=== PATIENT | female | born 1945 | race Asian ===

== ENCOUNTER 2018-10-24 14:38 | Inpatient (IN) | payer MEDICARE, SELFPAY ==
[2018-10-24 14:40] VITALS: BP 134/47; PULSE 63; RESP 20; TEMP 36.7; O2SAT 99
--- NOTE | 2018-10-24 14:41 | DI.RAD.S_ITS ---
PROCEDURE: XR HIP W PEL IF DONE LT 2V INDICATIONS: fall with hip pain TECHNIQUE: AP pelvis with lateral view the left hip. COMPARISON: None. FINDINGS: The Bones: There is a mildly impacted intertrochanteric fracture of the proximal left femur. There is mild associated varus angulation. The fracture extends to the subtrochanteric region. Pelvic ring appears intact. The left hip demonstrates moderate to severe superior joint space narrowing with subchondral sclerosis and osteophytosis. No suspicious bony lesions. Soft tissues: The visualized bowel gas pattern is normal. No suspicious soft tissue calcifications. IMPRESSION: 1. Intertrochanteric fracture of the left femur as described. Dictated by: Otto Shannon M.D. on 10/24/2018 at 15:29 Approved by: Otto Shannon M.D. on 10/24/2018 at 16:12
--- NOTE | 2018-10-24 14:55 | ED.FALL ---
HPI - Fall General Chief Complaint: Fall Stated Complaint: GLF, L hip injury Time Seen by Provider: 10/24/18 14:41 Source: patient, family and EMS Mode of arrival: EMS Limitations: language barrier History of Present Illness HPI Narrative: 72-year-old female nonsmoker with cardiac history including stents, myocardial infarction speaks Cambodian as a 2nd language (screen is her [place] language). Patient [place] she slipped and fell onto her left hip she now has significant pain, limited range of motion and improvement with rest. She was brought by EMS for evaluation. She denies any head neck or back pain. She denies any prodromal symptoms. MD complaint: fall Onset (ago): minute(s) Fall from: standing Fall witnessed: yes, by family Place fall occurred: other Loss of consciousness: none Prolonged down time: no Symptoms prior to fall: none Context: tripped/slipped Severity: severe Quality: sharp and stabbing Related Data Home Medications Medication Instructions Recorded Confirmed Vitamin D3 1 cap PO DAILY 10/24/18 10/24/18 ascorbic acid (vitamin C) 100 mg PO DAILY 10/24/18 10/24/18 aspirin 81 mg PO DAILY 10/24/18 10/24/18 atorvastatin 80 mg PO DAILY 10/24/18 10/24/18 carvedilol 3.125 mg PO BID 10/24/18 10/24/18 citalopram 10 mg PO DAILY 10/24/18 10/24/18 losartan 25 mg PO DAILY 10/24/18 10/24/18 ticagrelor [Brilinta] 90 mg PO BID 10/24/18 10/24/18 Allergies Allergy/AdvReac Type Severity Reaction Status Date / Time No Known Drug Allergies Allergy Verified 10/24/18 14:53 Review of Systems Constitutional Denies chills, Denies fever(s), Denies lethargy and Denies weakness Eyes Denies change in vision, Denies eye discharge, Denies irritation and Denies loss of vision ENT Ears, Nose, Mouth, and Throat: Denies change in voice, Denies neck pain and Denies sore throat Cardiovascular Denies chest pain, Denies irregular heart rhythm, Denies lightheadedness, Denies palpitations, Denies dyspnea, Denies dyspnea on exertion and Denies orthopnea Respiratory Denies cough, Denies dyspnea, Denies dyspnea on exertion and Denies wheezing Gastrointestinal Gastrointestinal: Denies abdominal pain, Denies change in bowel habits, Denies diarrhea, Denies nausea and Denies vomiting Genitourinary Denies hematuria, Denies flank pain, Denies urinary incontinence and Denies urinary urgency Musculoskeletal Reports limited range of motion and Denies neck pain Integumentary/Breasts Denies pruritus, Denies erythema, Denies rash and Denies wounds Neurologic Denies confusion, Denies loss of vision and Denies weakness Psychiatric Denies anxiety, Denies confusion, Denies depression, Denies homicidal ideation and Denies suicidal ideation Endocrine Denies palpitations Hematologic/Lymphatic Denies easy bruising Allergic/Immunologic Denies wheezing Exam Narrative Exam Narrative: GENERAL: 72-year-old female appears younger than stated age, obviously uncomfortable and rubbing her left hip HEAD: Atraumatic. Normocephalic. No temporal or scalp tenderness. EYES: Pupils equal round and reactive. Extraocular motions intact. ENT: Nose without bleeding, purulent drainage or septal hematoma. NECK: Trachea midline. No JVD or lymphadenopathy. Supple, nontender, no meningeal signs. CARDIOVASCULAR: Regular rate and rhythm without murmurs, gallops, or rubs. RESPIRATORY: Clear to auscultation. Breath sounds equal bilaterally. No wheezes, rales, or rhonchi. GASTROINTESTINAL: Abdomen soft, non-tender, nondistended. No hepato-splenomegaly, or palpable masses. No guarding. EXTREMITIES: Decreased range of motion of left lower extremity secondary to pain, shortened, externally rotated. Close, isolated neurovascularly intact BACK: Nontender without deformity or crepitance. No flank tenderness. NEURO: AOx3. SKIN: No rash or erythema. Initial Vital Signs Initial Vital Signs: Vital Signs Temperature 98.0 F 10/24/18 14:40 Pulse Rate 63 10/24/18 14:40 Respiratory Rate 20 10/24/18 14:40 Blood Pressure 134/47 L 10/24/18 14:40 Pulse Oximetry 99 10/24/18 14:40 [facility] Social History Smoking Status: Never smoker Social History Smoking Status: Never smoker Course Orders Ordered: ED Orders 10/24/18 14:22 Basic Metabolic Panel Stat Complete Blood Count AUTO DIFF Stat 10/24/18 14:41 XR hip w pel if done LT 2V Stat Discontinued Medications Hydromorphone HCl (Dilaudid) 0.5 mg IV NOW ONE Stop: 10/24/18 15:07 Last Admin: 10/24/18 15:10 Dose: 0.5 mg Consultations Consultation #1: Dr. Boateng consulted Consultation #2: Dr. Monaco happy to accept Vital Signs - 8 hr 10/24/18 14:40 Temperature 98.0 F Pulse Rate 63 Respiratory Rate 20 Blood Pressure 134/47 L Pulse Oximetry 99 MDM - Fall Lab Data Result diagrams: 10/24/18 14:22 10/24/18 14:22 Lab Results 10/24/18 10/24/18 Range/Units 14:22 14:22 WBC 9.2 (4.5-11.0) X10^3/uL RBC 3.61 L (4.0-5.2) X10^6/uL Hgb 11.9 L (12.0-16.0) g/dL Hct 35.1 L (36-46) % MCV 97.1 (80-100) fL MCH 32.9 (26-34) PG MCHC 33.9 (30-36) % RDW 12.8 (11.6-14.8) % Plt Count 153 (150-400) X10^3/uL Neut % (Auto) 82.3 H (50-75) % Lymph % (Auto) 11.7 L (25-40) % [place] % (Auto) 4.4 (3-14) % Eos % (Auto) 1.2 L (2-4) % Baso % (Auto) 0.4 (0-2) % Neut # (Auto) 7600 H (4602-5753) /uL Lymph # (Auto) 1100 (5057-7761) /uL [place] # (Auto) 400 (0-900) /uL Eos # (Auto) 100 (0-450) /uL Baso # (Auto) 0 (0-100) /uL Sodium 142 (137-145) mmol/L Potassium 4.2 (3.4-5.1) mmol/L Chloride 109 H (98-107) mmol/L Carbon Dioxide 25 (22-32) mmol/L BUN 20 H (7-17) mg/dL Creatinine 0.70 (0.52-1.04) mg/dL Estimated GFR > 60.0 (>60) mL/min BUN/Creatinine Ratio 28.6 H (6-22) Glucose 103 (80-110) mg/dL Calcium 8.8 (8.4-10.2) mg/dL Imaging Data Hip Xray: Radiologist's impression: [address] [address] XRay Report Signed Patient: Faina Fuentes#: [id number] : 7Acct:[id number] Age/Sex: 72 / FDate of Service: 10/24/18 Loc: ED Accession Number: [id number] Procedure: XR hip w pel if done LT 2V Ordering Provider: Jose Stevenson D.O. PROCEDURE: XR HIP W PEL IF DONE LT 2V INDICATIONS: fall with hip pain TECHNIQUE: AP pelvis with lateral view the left hip. COMPARISON: None. FINDINGS: The Bones: There is a mildly impacted intertrochanteric fracture of the proximal left femur. There is mild associated varus angulation. The fracture extends to the subtrochanteric region. Pelvic ring appears intact. The left hip demonstrates moderate to severe superior joint space narrowing with subchondral sclerosis and osteophytosis. No suspicious bony lesions. Soft tissues: The visualized bowel gas pattern is normal. No suspicious soft tissue calcifications. IMPRESSION: 1. Intertrochanteric fracture of the left femur as described. Dictated by: Otto Shannon M.D. on 10/24/2018 at 15:29 Approved by: Otto Shannon M.D. on 10/24/2018 at 16:12 Discharge Plan Departure Patient Disposition: Admitted As Inpatient Clinical Impression: Closed fracture of left hip
[2018-10-24] MEDS: HYDROMORPHONE 1 MG INJ 0.5 MG IV (15:10)
[2018-10-24 15:29] LABS: Add Manual Diff / Slide Review NO; Basophils Absolute Auto 0 /uL (0-100); Basophils Percent Auto 0.4 % (0-2); Eosinophils Absolute Auto 100 /uL (0-450); Eosinophils Percent Auto 1.2 % (2-4); Hematocrit 35.1 % (36-46); Hemoglobin 11.9 g/dL (12.0-16.0); Lymphocytes Absolute Auto 1100 /uL (1100-4500); Lymphocytes Percent Auto 11.7 % (25-40); Mean Corpuscular HGB Conc 33.9 % (30-36); Mean Corpuscular Hemoglobin 32.9 PG (26-34); Mean Corpuscular Volume 97.1 fL (80-100); Monocytes Absolute Auto 400 /uL (0-900); Monocytes Percent Auto 4.4 % (3-14); Neutrophils Absolute Auto 7600 /uL (1500-7000); Neutrophils Percent Auto 82.3 % (50-75); Platelet Count 153 X10^3/uL (150-400); Red Blood Cell Count 3.61 X10^6/uL (4.0-5.2); Red Cell Distribution Width 12.8 % (11.6-14.8); White Blood Cell Count 9.2 X10^3/uL (4.5-11.0)
[2018-10-24 15:45] LABS: BUN Creatinine Ratio 28.6 (6-22); Blood Urea Nitrogen 20 mg/dL (7-17); Calcium 8.8 mg/dL (8.4-10.2); Carbon Dioxide 25 mmol/L (22-32); Chloride 109 mmol/L (98-107); Estimated Glomerular Filt Rate > 60.0 mL/min (>60); Glucose 103 mg/dL (80-110); HEMOLYSIS < 15 (0-50); Potassium 4.2 mmol/L (3.4-5.1); Sodium 142 mmol/L (137-145)
--- NOTE | 2018-10-24 15:47 | ED_ITS ---
HPI - Fall General Chief Complaint: Fall Stated Complaint: GLF, L hip injury Time Seen by Provider: 10/24/18 14:41 Source: patient, family and EMS Mode of arrival: EMS Limitations: language barrier History of Present Illness HPI Narrative: 72-year-old female nonsmoker with cardiac history including stents, myocardial infarction speaks [place]i as a 2nd language (screen is her circle language). [place] she slipped and fell onto her left hip she now has significant pain, limited range of motion and improvement with rest. She was brought by EMS for evaluation. She denies any head neck or back pain. She denies any prodromal symptoms. MD complaint: fall Onset (ago): minute(s) Fall from: standing Fall witnessed: yes, by family Place fall occurred: other Loss of consciousness: none Prolonged down time: no Symptoms prior to fall: none Context: tripped/slipped Severity: severe Quality: sharp and stabbing Related Data Home Medications Medication Instructions Recorded Confirmed Vitamin D3 1 cap PO DAILY 10/24/18 10/24/18 ascorbic acid (vitamin C) 100 mg PO DAILY 10/24/18 10/24/18 aspirin 81 mg PO DAILY 10/24/18 10/24/18 atorvastatin 80 mg PO DAILY 10/24/18 10/24/18 carvedilol 3.125 mg PO BID 10/24/18 10/24/18 citalopram 10 mg PO DAILY 10/24/18 10/24/18 losartan 25 mg PO DAILY 10/24/18 10/24/18 ticagrelor [Brilinta] 90 mg PO BID 10/24/18 10/24/18 Allergies Allergy/AdvReac Type Severity Reaction Status Date / Time No Known Drug Allergies Allergy Verified 10/24/18 14:53 Review of Systems Constitutional Denies chills, Denies fever(s), Denies lethargy and Denies weakness Eyes Denies change in vision, Denies eye discharge, Denies irritation and Denies loss of vision ENT Ears, Nose, Mouth, and Throat: Denies change in voice, Denies neck pain and Denies sore throat Cardiovascular Denies chest pain, Denies irregular heart rhythm, Denies lightheadedness, Denies palpitations, Denies dyspnea, Denies dyspnea on exertion and Denies orthopnea Respiratory Denies cough, Denies dyspnea, Denies dyspnea on exertion and Denies wheezing Gastrointestinal Gastrointestinal: Denies abdominal pain, Denies change in bowel habits, Denies diarrhea, Denies nausea and Denies vomiting Genitourinary Denies hematuria, Denies flank pain, Denies urinary incontinence and Denies u rinary urgency Musculoskeletal Reports limited range of motion and Denies neck pain Integumentary/Breasts Denies pruritus, Denies erythema, Denies rash and Denies wounds Neurologic Denies confusion, Denies loss of vision and Denies weakness Psychiatric Denies anxiety, Denies confusion, Denies depression, Denies homicidal ideation and Denies suicidal ideation Endocrine Denies palpitations Hematologic/Lymphatic Denies easy bruising Allergic/Immunologic Denies wheezing Exam Narrative Exam Narrative: GENERAL: 72-year-old female appears younger than stated age, obviously uncomfortable and rubbing her left hip HEAD: Atraumatic. Normocephalic. No temporal or scalp tenderness. EYES: Pupils equal round and reactive. Extraocular motions intact. ENT: Nose without bleeding, purulent drainage or septal hematoma. NECK: Trachea midline. No JVD or lymphadenopathy. Supple, nontender, no meningeal signs. CARDIOVASCULAR: Regular rate and rhythm without murmurs, gallops, or rubs. RESPIRATORY: Clear to auscultation. Breath sounds equal bilaterally. No wheezes, rales, or rhonchi. GASTROINTESTINAL: Abdomen soft, non-tender, nondistended. No hepato- splenomegaly, or palpable masses. No guarding. EXTREMITIES: Decreased range of motion of left lower extremity secondary to pain, shortened, externally rotated. Close, isolated neurovascularly intact BACK: Nontender without deformity or crepitance. No flank tenderness. NEURO: AOx3. SKIN: No rash or erythema. Initial Vital Signs Initial Vital Signs: Vital Signs Temperature 98.0 F 10/24/18 14:40 Pulse Rate 63 10/24/18 14:40 Respiratory Rate 20 10/24/18 14:40 Blood Pressure 134/47 L 10/24/18 14:40 Pulse Oximetry 99 10/24/18 14:40 [facility] Social History Smoking Status: Never smoker Social History Smoking Status: Never smoker Course Orders Ordered: ED Orders 10/24/18 14:22 Basic Metabolic Panel Stat Complete Blood Count AUTO DIFF Stat 10/24/18 14:41 XR hip w pel if done LT 2V Stat Discontinued Medications Hydromorphone HCl (Dilaudid) 0.5 mg IV NOW ONE Stop: 10/24/18 15:07 Last Admin: 10/24/18 15:10 Dose: 0.5 mg Consultations Consultation #1: Dr. Boateng consulted Consultation #2: Dr. Monaco happy to accept Vital Signs - 8 hr 10/24/18 14:40 Temperature 98.0 F Pulse Rate 63 Respiratory Rate 20 Blood Pressure 134/47 L Pulse Oximetry 99 MDM - Fall Lab Data Result diagrams: 10/24/18 14:22 10/24/18 14:22 Lab Results 10/24/18 10/24/18 Range/Units 14:22 14:22 WBC 9.2 (4.5-11.0) X10^3/uL RBC 3.61 L (4.0-5.2) X10^6/uL Hgb 11.9 L (12.0-16.0) g/dL Hct 35.1 L (36-46) % MCV 97.1 (80-100) fL MCH 32.9 (26-34) PG MCHC 33.9 (30-36) % RDW 12.8 (11.6-14.8) % Plt Count 153 (150-400) X10^3/uL Neut % (Auto) 82.3 H (50-75) % Lymph % (Auto) 11.7 L (25-40) % [place] % (Auto) 4.4 (3-14) % Eos % (Auto) 1.2 L (2-4) % Baso % (Auto) 0.4 (0-2) % Neut # (Auto) 7600 H (7113-2835) /uL Lymph # (Auto) 1100 (5832-1602) /uL [place] # (Auto) 400 (0-900) /uL Eos # (Auto) 100 (0-450) /uL Baso # (Auto) 0 (0-100) /uL Sodium 142 (137-145) mmol/L Potassium 4.2 (3.4-5.1) mmol/L Chloride 109 H (98-107) mmol/L Carbon Dioxide 25 (22-32) mmol/L BUN 20 H (7-17) mg/dL Creatinine 0.70 (0.52-1.04) mg/dL Estimated GFR > 60.0 (>60) mL/min BUN/Creatinine Ratio 28.6 H (6-22) Glucose 103 (80-110) mg/dL Calcium 8.8 (8.4-10.2) mg/dL Imaging Data Hip Xray: Radiologist's impression: [address] [address] XRay Report Signed Patient: Faina Fuentes#: [id number] : 7Acct:[id number] Age/Sex: 72 / FDate of Service: 10/24/18 Loc: ED Accession Number: [id number] Procedure: XR hip w pel if done LT 2V Ordering Provider: Jose Stevenson D.O. PROCEDURE: XR HIP W PEL IF DONE LT 2V INDICATIONS: fall with hip pain TECHNIQUE: AP pelvis with lateral view the left hip. COMPARISON: None. FINDINGS: The Bones: There is a mildly impacted intertrochanteric fracture of the proximal left femur. There is mild associated varus angulation. The fracture extends to the subtrochanteric region. Pelvic ring appears intact. The left hip demonstrates moderate to severe superior joint space narrowing with subchondral sclerosis and osteophytosis. No suspicious bony lesions. Soft tissues: The visualized bowel gas pattern is normal. No suspicious soft tissue calcifications. IMPRESSION: 1. Intertrochanteric fracture of the left femur as described. Dictated by: Otto Shannon M.D. on 10/24/2018 at 15:29 Approved by: Otto Shannon M.D. on 10/24/2018 at 16:12 Discharge Plan Departure Patient Disposition: Admitted As Inpatient Clinical Impression: Closed fracture of left hip
[2018-10-24 16:30] VITALS: BP 137/72; PULSE 63; RESP 15; O2SAT 99
[2018-10-24 17:30] VITALS: BP 124/90; PULSE 65; O2SAT 97
[2018-10-24] MEDS: HYDROMORPHONE 0.5 MG INJ IV (18:11)
--- NOTE | 2018-10-24 18:55 | P.HP_ITS ---
History of Present Illness Date Patient Seen: 10/24/18 Chief complaint: GLF, L hip injury Narrative: Patient is a 72-year-old female with a history of coronary disease status post myocardial infarction 3 years ago and 1 stent who was in her usual state of health until today. Patient was at [facility] and slipped and fell. Patient reports she fell she fell on her hip. She knew immediately something was wrong. She had significant pain. Patient was brought into the emergency department and found to have A left intertrochanteric fracture. Patient reports some pain in the left hip. She denies any chest pain, shortness of breath, nausea or vomiting. Patient denies any fever or chills. She has had no dysuria hematuria or pyuria she denies any nausea vomiting diarrhea or constipation. Patient reports she is healthy. Patient History Medical History (Updated 10/24/18 @ 18:58 by Yelena Monaco MD) CAD (coronary artery disease) (Acute) History of myocardial infarction (Acute) History of sciatica (Acute) Lumbar stenosis (Acute) Family History (Updated 10/24/18 @ 18:58 by Yelena Monaco MD) Mother Cancer Father Diabetes mellitus Social History Smoking Status: Never smoker Family & Social History Family History (Updated 10/24/18 @ 18:58 by Yelena Monaco MD) Mother Cancer Father Diabetes mellitus Safety & Behavioral: Feels Safe in Current Yes Environment Been Physically Hurt or No Threatened By a Person Tobacco & Substance use: Smoking Status Never smoker alcohol intake frequency 0-2 drinks per day Substance Use Type does not use Meds Home Medications Medication Instructions Recorded Confirmed Type Vitamin D3 1 cap PO DAILY 10/24/18 10/24/18 History ascorbic acid (vitamin C) 100 mg PO DAILY 10/24/18 10/24/18 History aspirin 81 mg PO DAILY 10/24/18 10/24/18 History atorvastatin 80 mg PO DAILY 10/24/18 10/24/18 History carvedilol 3.125 mg PO BID 10/24/18 10/24/18 History citalopram 10 mg PO DAILY 10/24/18 10/24/18 History losartan 25 mg PO DAILY 10/24/18 10/24/18 History ticagrelor [Brilinta] 90 mg PO BID 10/24/18 10/24/18 History Allergies Allergy/AdvReac Type Severity Reaction Status Date / Time No Known Drug Allergies Allergy Verified 10/24/18 14:53 Review of Systems Review of Systems All systems reviewed & are unremarkable except as noted in HPI and below Exam Vital Signs (past 8 hours): - 10/24/18 14:40 10/24/18 16:30 10/24/18 17:30 Temperature 98.0 F Pulse Rate 63 63 65 Respiratory Rate 20 15 Blood Pressure 134/47 L Blood Pressure [Left Arm] 137/72 124/90 Pulse Oximetry 99 99 97 Oxygen Delivery Method Room Air Narrative Exam Narrative: Pleasant female resting with obvious pain in the left hip HEENT: Normocephalic atraumatic, oropharynx is clear, neck is supple, extraocular muscles are intact Lungs: Clear to auscultation Cardiac exam: Regular rate and rhythm normal S1-S2 Abdomen: Soft nontender nondistended Extremities: Left lower extremity externally rotated and shortened right lower extremity no edema pulses intact Neuro exam: Patient is alert oriented awake and appropriate, cranial nerves are intact strength is symmetric and equal in the upper extremities, right lower extremity strength is symmetric and equal, sensation is grossly intact Objective Labs Result Diagrams: 10/24/18 14:22 10/24/18 14:22 Labs: Laboratory Results - last 24 hr 10/24/18 10/24/18 14:22 14:22 WBC 9.2 RBC 3.61 L Hgb 11.9 L Hct 35.1 L MCV 97.1 MCH 32.9 MCHC 33.9 RDW 12.8 Plt Count 153 Neut % (Auto) 82.3 H Lymph % (Auto) 11.7 L [place] % (Auto) 4.4 Eos % (Auto) 1.2 L Baso % (Auto) 0.4 Neut # (Auto) 7600 H Lymph # (Auto) 1100 [place] # (Auto) 400 Eos # (Auto) 100 Baso # (Auto) 0 Sodium 142 Potassium 4.2 Chloride 109 H Carbon Dioxide 25 BUN 20 H Creatinine 0.70 Estimated GFR > 60.0 BUN/Creatinine Ratio 28.6 H Glucose 103 Calcium 8.8 Assessment & Plan Assessment & Plan narrative: 1. Left intertrochanteric fracture following a ground level fall. Patient very likely with underlying osteoporosis. X-ray confirms left intertrochanteric fracture. Plan at this time patient will have definitive surgical repair tomorrow. Will defer starting treatment for osteoporosis until outpatient. Patient will have PT and OT following surgery. She requests transfer to rehabilitation in [place] to be closer to family if needed. 2. Coronary artery disease, status post stent placement, history of myocardial infarction 3 years ago. Patient was previously on Brilinta, this will be held. Will continue her usual medications for coronary disease including aspirin, statin, Coreg, and losartan will resume Brilinta after surgery 3. Depression continue citalopram 4. History of lumbar stenosis, chronic 5. History of sciatica, chronic Patient is a full and will note that her record accordingly
[2018-10-24] MEDS: DEXTROSE 5%-0.9% NS 1,000 ML 100 ML IV (18:56)
[2018-10-24 19:05] VITALS: BMI 25.4
[2018-10-24 19:14] VITALS: BP 148/78; PULSE 60; RESP 20; TEMP 37; O2SAT 98
[2018-10-24] MEDS: HYDROCODONE/ACET 5/325 TABLET 1 TAB PO (19:23)
[2018-10-24 21:30] VITALS: BP 144/66; PULSE 62
[2018-10-24] MEDS: CARVEDILOL 3.125 MG TABLET PO (21:30)
[2018-10-24] MEDS: ATORVASTATIN 20 MG TABLET 40 MG PO (21:30)
[2018-10-24] MEDS: SENNOSIDES 8.6 MG TABLET 17.2 MG PO (21:35)
[2018-10-24] MEDS: DOCUSATE 100 MG CAPSULE PO (21:35)
[2018-10-24 21:45] LABS: Add Manual Diff / Slide Review NO; Basophils Absolute Auto 0 /uL (0-100); Basophils Percent Auto 0.4 % (0-2); Eosinophils Absolute Auto 100 /uL (0-450); Hematocrit 34.7 % (36-46); Hemoglobin 11.7 g/dL (12.0-16.0); Lymphocytes Absolute Auto 1200 /uL (1100-4500); Lymphocytes Percent Auto 17.2 % (25-40); Mean Corpuscular HGB Conc 33.8 % (30-36); Mean Corpuscular Hemoglobin 32.9 PG (26-34); Mean Corpuscular Volume 97.3 fL (80-100); Monocytes Absolute Auto 400 /uL (0-900); Neutrophils Absolute Auto 5000 /uL (1500-7000); Neutrophils Percent Auto 75.4 % (50-75); Platelet Count 138 X10^3/uL (150-400); Red Blood Cell Count 3.57 X10^6/uL (4.0-5.2); Red Cell Distribution Width 12.5 % (11.6-14.8); White Blood Cell Count 6.7 X10^3/uL (4.5-11.0)
[2018-10-24 21:48] LABS: BUN Creatinine Ratio 31.7 (6-22); Blood Urea Nitrogen 19 mg/dL (7-17); Calcium 8.8 mg/dL (8.4-10.2); Carbon Dioxide 26 mmol/L (22-32); Chloride 109 mmol/L (98-107); Estimated Glomerular Filt Rate > 60.0 mL/min (>60); Glucose 148 mg/dL (80-110); HEMOLYSIS < 15 (0-50); Sodium 139 mmol/L (137-145)
[2018-10-24 23:10] VITALS: BP 125/68; PULSE 64; RESP 18; TEMP 36.9; O2SAT 94
[2018-10-25] VITALS (18 sets, daily range): BP systolic 129–164; BP diastolic 63–86; PULSE 62–73; RESP 12–18; TEMP 36.5–37.2; O2SAT 94–100; BMI 25.4
--- NOTE | 2018-10-25 | DI.RAD.S_ITS ---
PROCEDURE: XR HIP W PEL IF DONE LT 2V INDICATIONS: LEFT HIP ORIF FINDINGS: 5 limited intraoperative fluoroscopically stored images of the proximal left femur were obtained for intraoperative hardware localization purposes. These images are not meant for diagnostic purposes. Intraoperative findings related to a proximal left femoral ORIF are present. IMPRESSION: Intraoperative images obtained during the patient's proximal left femoral ORIF. Dictated by: Deacon Disla M.D. on 10/25/2018 at 15:36 Approved by: Deacon Disla M.D. on 10/25/2018 at 15:36
[2018-10-25] MEDS: KETOROLAC 30 MG/ML VIAL 15 MG IV ×2 (00:07→06:30)
--- NOTE | 2018-10-25 04:36 | PC.ADMIT ---
Safe hand off from RN in ED. Pt arrived on via stretcher w/ Friend at her side at 1820. Pt VSS, lung sound clear bilaterally, pain 6/10, CMS intact, denies nausea and is afebrile. Pt is on tele because of past history if MIx4. [facility], has L femur fx. Pt was educated about the use of call light and we talked about pain control being an issue and staying on top of pain. Pt is to be NPO at midnight for surgery in AM. [address] [facility] Admission Note: The patient,Gabi Fuentes,72 y/o, was given written information regarding hospital policies, unit procedures and contact persons. Patient's smoking status: Never smoker. Vital Signs - 8 hr 10/24/18 21:30 10/24/18 23:10 10/25/18 00:55 Temperature 98.5 F Pulse Rate 62 64 Respiratory Rate 18 Blood Pressure 144/66 H 125/68 Pulse Oximetry 94 94 10/25/18 04:09 Temperature 98.3 F Pulse Rate 65 Respiratory Rate 18 Blood Pressure 129/63 Pulse Oximetry 94
--- NOTE | 2018-10-25 04:43 | PC.NURSE ---
Pt is AxO x 4, pain 6/10, pt has mcgee for surgery in the AM. VSS, lung sounds clear. Pt was NPO at midnight. Pt is on NS @100 an hour. Pt was in a lot of pain when we tried to move her tonight. Pt is on Tele: Ns, NS 1st degree AV BBB for hx of MIx4. When patient was placed NPO she did not have the proper pain meds ordered for IV push. Emmy VALLE was notified. Verbal order was given to me to order Toridol 15mg Q6, and Morphine 2mg Q4. Pt has had dose of Toridol at 0000, which has been effective for pain control. Pt reports pain 2/10 after Toridol.
[2018-10-25] MEDS: DEXTROSE 5%-0.9% NS 1,000 ML 100 ML IV (05:39)
--- NOTE | 2018-10-25 08:45 | OT.IP.TRT ---
Surgery Performed Operation Date: 10/25/18 17:00 <No data on this case meets the specified criteria> Occupational Therapy Treatment Note M3 OT- IP Subjective and Pain Start: 10/25/18 08:45 Freq: Status: Active Protocol: Document 10/25/18 08:45 PJM (Rec: 10/25/18 08:49 PJM [id number]) OT- Subjective Occupational Therapy Visit Type Type Administrative Note Visit Start Time 08:45 Notes OT referral received. Pt to have surgery today to repair L hip fx. Will hold OT assessment until after surgery and await post op re-orders.
--- NOTE | 2018-10-25 09:06 | PT.IPTN ---
Surgery Performed Operation Date: 10/25/18 17:00 <No data on this case meets the specified criteria> Physical Therapy Treatment Note M3 PT-IP Subjective Start: 10/25/18 09:04 Freq: NEEDED Status: Active Protocol: Document 10/25/18 09:04 AB (Rec: 10/25/18 09:05 AB [id number]) Subjective Physical Therapy Visit Type Notes pt scheduled for surgery later on today and will complete PT eval after surgery.
[2018-10-25] MEDS: CITALOPRAM 10 MG TABLET PO (09:50)
[2018-10-25] MEDS: LOSARTAN 25 MG TABLET PO (09:50)
[2018-10-25] MEDS: CARVEDILOL 3.125 MG TABLET PO ×2 (09:50→22:36)
[2018-10-25] MEDS: DOCUSATE 100 MG CAPSULE PO ×2 (09:50→22:36)
--- NOTE | 2018-10-25 10:56 | PM.PN.1 ---
Subjective Date Patient Seen: 10/25/18 Interval history: The patient is a 72-year-old female who was admitted yesterday following a fall. She suffered a left intertrochanteric fracture. Patient is scheduled to go to the operating room today at 5:00 p.m.. She does report some pain in the left hip. Pain appears to be well controlled. Her major complaint is her NPO status for the next several hours. Exam Vital Signs (past 8 hours): - 10/25/18 04:09 10/25/18 07:36 Temperature 98.3 F 98.3 F Pulse Rate 65 64 Respiratory Rate 18 16 Blood Pressure 129/63 135/75 Pulse Oximetry 94 94 Oxygen Delivery Method Room Air Oxygen Flow Rate 0 Narrative Exam Narrative: Pleasant female somewhat uncomfortable Lungs: Clear to auscultation Cardiac exam: Regular rate and rhythm normal S1-S2 Abdomen: Soft and nontender Extremities: Left leg externally rotated and shorter, no edema Objective Labs Result Diagrams: 10/24/18 21:25 10/24/18 21:25 Labs: Laboratory Results - last 24 hr 10/24/18 10/24/18 10/24/18 14:22 14:22 21:25 WBC 9.2 6.7 RBC 3.61 L 3.57 L Hgb 11.9 L 11.7 L Hct 35.1 L 34.7 L MCV 97.1 97.3 MCH 32.9 32.9 MCHC 33.9 33.8 RDW 12.8 12.5 Plt Count 153 138 L Neut % (Auto) 82.3 H 75.4 H Lymph % (Auto) 11.7 L 17.2 L [place] % (Auto) 4.4 6.0 Eos % (Auto) 1.2 L 1.0 L Baso % (Auto) 0.4 0.4 Neut # (Auto) 7600 H 5000 Lymph # (Auto) 1100 1200 [place] # (Auto) 400 400 Eos # (Auto) 100 100 Baso # (Auto) 0 0 Sodium 142 Potassium 4.2 Chloride 109 H Carbon Dioxide 25 BUN 20 H Creatinine 0.70 Estimated GFR > 60.0 BUN/Creatinine Ratio 28.6 H Glucose 103 Calcium 8.8 10/24/18 21:25 WBC RBC Hgb Hct MCV MCH MCHC RDW Plt Count Neut % (Auto) Lymph % (Auto) [place] % (Auto) Eos % (Auto) Baso % (Auto) Neut # (Auto) Lymph # (Auto) [place] # (Auto) Eos # (Auto) Baso # (Auto) Sodium 139 Potassium 4.0 Chloride 109 H Carbon Dioxide 26 BUN 19 H Creatinine 0.60 Estimated GFR > 60.0 BUN/Creatinine Ratio 31.7 H Glucose 148 H Calcium 8.8 Assessment & Plan Assessment & Plan narrative: 1. 72-year-old female admitted to the hospital following a ground level fall. She suffered a left intertrochanteric fracture. The patient is scheduled for surgery later this afternoon. Fracture most likely is secondary to underlying osteoporosis. 2. History of myocardial infarction, chronic, no chest pain at this time 3. Coronary disease, status post stenting, Brilinta on hold until surgery. 4. Depression, chronic will continue citalopram. Plan would definitive surgery is scheduled later this afternoon. Quality VTE Deep Vein Thrombosis/Pulmonary Embolism Present on Admission: No
--- NOTE | 2018-10-25 11:01 | P.PN_ITS ---
Subjective Date Patient Seen: 10/25/18 Interval history: The patient is a 72-year-old female who was admitted yesterday following a fall. She suffered a left intertrochanteric fracture. Patient is scheduled to go to the operating room today at 5:00 p.m.. She does report some pain in the left hip. Pain appears to be well controlled. Her major complaint is her NPO status for the next several hours. Exam Vital Signs (past 8 hours): - 10/25/18 04:09 10/25/18 07:36 Temperature 98.3 F 98.3 F Pulse Rate 65 64 Respiratory Rate 18 16 Blood Pressure 129/63 135/75 Pulse Oximetry 94 94 Oxygen Delivery Method Room Air Oxygen Flow Rate 0 Narrative Exam Narrative: Pleasant female somewhat uncomfortable Lungs: Clear to auscultation Cardiac exam: Regular rate and rhythm normal S1-S2 Abdomen: Soft and nontender Extremities: Left leg externally rotated and shorter, no edema Objective Labs Result Diagrams: 10/24/18 21:25 10/24/18 21:25 Labs: Laboratory Results - last 24 hr 10/24/18 10/24/18 10/24/18 14:22 14:22 21:25 WBC 9.2 6.7 RBC 3.61 L 3.57 L Hgb 11.9 L 11.7 L Hct 35.1 L 34.7 L MCV 97.1 97.3 MCH 32.9 32.9 MCHC 33.9 33.8 RDW 12.8 12.5 Plt Count 153 138 L Neut % (Auto) 82.3 H 75.4 H Lymph % (Auto) 11.7 L 17.2 L [place] % (Auto) 4.4 6.0 Eos % (Auto) 1.2 L 1.0 L Baso % (Auto) 0.4 0.4 Neut # (Auto) 7600 H 5000 Lymph # (Auto) 1100 1200 [place] # (Auto) 400 400 Eos # (Auto) 100 100 Baso # (Auto) 0 0 Sodium 142 Potassium 4.2 Chloride 109 H Carbon Dioxide 25 BUN 20 H Creatinine 0.70 Estimated GFR > 60.0 BUN/Creatinine Ratio 28.6 H Glucose 103 Calcium 8.8 10/24/18 21:25 WBC RBC Hgb Hct MCV MCH MCHC RDW Plt Count Neut % (Auto) Lymph % (Auto) [place] % (Auto) Eos % (Auto) Baso % (Auto) Neut # (Auto) Lymph # (Auto) [place] # (Auto) Eos # (Auto) Baso # (Auto) Sodium 139 Potassium 4.0 Chloride 109 H Carbon Dioxide 26 BUN 19 H Creatinine 0.60 Estimated GFR > 60.0 BUN/Creatinine Ratio 31.7 H Glucose 148 H Calcium 8.8 Assessment & Plan Assessment & Plan narrative: 1. 72-year-old female admitted to the hospital following a ground level fall. She suffered a left intertrochanteric fracture. The patient is scheduled for surgery later this afternoon. Fracture most likely is secondary to underlying osteoporosis. 2. History of myocardial infarction, chronic, no chest pain at this time 3. Coronary disease, status post stenting, Brilinta on hold until surgery. 4. Depression, chronic will continue citalopram. Plan would definitive surgery is scheduled later this afternoon. Quality VTE Deep Vein Thrombosis/Pulmonary Embolism Present on Admission: No
[2018-10-25] MEDS: KETOROLAC 15 MG/ML VIAL IV ×2 (12:29→19:15)
[2018-10-25] MEDS: MORPHINE 2 MG/ML INJ IV (13:30)
--- NOTE | 2018-10-25 14:01 | CM.DANOTE ---
DCP/Assessment: Reviewed chart. Patient is a 72yr old female admitted to [facility] after GLF. Patient scheduled for left hip surgery/repair today with Dr. Boateng. Primary payor is 1)[facility]. PCP is Dr. Betancourt in [facility]# [phone]. Met with patient explained CM/SW role. Patient very pleasant 72yr old whom reports that she fell at [place] while touring with her jainism group from [place]. Patient having surgery this afternoon. It is suspected that patient will need SNF for rehab when medically stable. Patient reports that she resides alone and does not have any immediate assistance if needed. Patient reports that she did not use any DME prior to admit. Patient prefers SNF in [facility] if possible. [employer] asked YASMANY Medina to check with insurance on contracted providers. List given to patient and first choice is [facility] # [phone]. YASMANY Medina to check with facility re: availability after surgery. P: Pending. Patient having surgery today. SNF anticipated at time of d/c. FABIENNE Hill Discharge Planning/Care Management CM Discharge Assessment Start: 10/25/18 13:52 Freq: Status: Active Protocol: Document 10/25/18 13:52 KJDelphine (Rec: 10/25/18 14:01 [id number]) Discharge Planning Assessment Assigned [employer] FABIENNE Hill Contact Information Steven Fuentes (son) [phone] Advance Directives? No History Provided By Patient Medical Record Prior Living Arrangements Apartment/Condo Household Members none Type of transporation used prior to Drives own vehicle admit Independent with ADL's Yes Is patient alert and oriented? Yes Caregiver for Another No Patient/Family Preference Fdc Facility Discharge Plan Fdc Facility Transportation Arrangement Unknown at this time Referrals Initiated [facility]dc If patient plan is SNF: Has PASSR been No completed? Inpatient Status as of 10/24/18 Comment Patient scheduled for surgery today for left intertrhochanteric fx following GLF. Dr. Boateng is surgeon. Medicare Choice List Provided Yes SNF/HH Preference First SNF choice: [facility]# Comment Asked YASMANY/Carol to contact for potential placement within the next 24-48hrs. Whiteboard Updated in Patient Room with Yes name and ext. # of [employer] Review Status In Process Next Review Type Continued Stay Review
--- NOTE | 2018-10-25 14:07 | SUR.HOLD ---
Received pt from acute care RN called me report and stated pt c/o chest pressure for which she just received morphine, Dr Rodriguez made aware, in to see pt, labs and ekg ordered. Dr. Rodriguez in to see EKG and lab here to draw blood. Dr. Rodriguez spoke with hospitalist.
[2018-10-25] MEDS: LACTATED RINGERS 1,000 ML 42 ML IV ×2 (14:43→22:35)
[2018-10-25 14:46] LABS: Troponin I < 0.012 ng/mL (0.01-0.034)
[2018-10-25] MEDS: CEFAZOLIN 2 GM/100 ML FROZ.PIGGY IV ×2 (14:54→22:35)
--- NOTE | 2018-10-25 15:08 | P.CONS_ITS ---
History of Present Illness Date Patient Seen: 10/25/18 Time Patient Seen: 10:00 Chief complaint: GLF, L hip injury Reason for consult: Left hip fracture Requesting provider: Yelena Monaco Narrative: The patient is a 72-year-old woman who fell while visiting to [facility] injuring her left hip. X-rays in the emergency room showed a displaced intertrochanteric hip fracture. She is not sure if she has had any trouble with the hip before but she does have a history of sciatica. She denies any other injuries in her fall. She did not hit her head and there was no loss of consciousness. [facility] Medical History CAD (coronary artery disease) (Acute) History of myocardial infarction (Acute) History of sciatica (Acute) Lumbar stenosis (Acute) Family History (Updated 10/24/18 @ 18:58 by Yelena Monaco MD) Mother Cancer Father Diabetes mellitus Social History household members: none Smoking Status: Never smoker Family History Mother Cancer Father Diabetes mellitus Social History household members: none Smoking Status: Never smoker Meds Home Medications Medication Instructions Recorded Confirmed Type Vitamin D3 1 cap PO DAILY 10/24/18 10/24/18 History ascorbic acid (vitamin C) 100 mg PO DAILY 10/24/18 10/24/18 History aspirin 81 mg PO DAILY 10/24/18 10/24/18 History atorvastatin 80 mg PO DAILY 10/24/18 10/24/18 History carvedilol 3.125 mg PO BID 10/24/18 10/24/18 History citalopram 10 mg PO DAILY 10/24/18 10/24/18 History losartan 25 mg PO DAILY 10/24/18 10/24/18 History ticagrelor [Brilinta] 90 mg PO BID 10/24/18 10/24/18 History Allergies Allergy/AdvReac Type Severity Reaction Status Date / Time No Known Drug Allergies Allergy Verified 10/24/18 14:53 Review of Systems Review of Systems All systems reviewed & are unremarkable except as noted in HPI and below Exam Vital Signs (past 8 hours): - 10/25/18 07:36 10/25/18 08:00 10/25/18 11:10 Temperature 98.3 F 98.4 F Pulse Rate 64 64 Respiratory Rate 16 16 Blood Pressure 135/75 129/68 Pulse Oximetry 94 97 96 10/25/18 14:15 Temperature 98.9 F Pulse Rate 65 Respiratory Rate 16 Blood Pressure 132/78 Pulse Oximetry 99 Oxygen Delivery Method Room Air Oxygen Flow Rate 0 Const General: cooperative and healthy appearing Nutritional Appearance: average body habitus Orientation: alert and oriented x3 Neuro Other: Lower extremity neurologic exam she has essentially 5/5 strength thro ughout the lower extremity although this is not tested at the left hip due to pain. Sensation is intact to light touch throughout the lower extremities. Extrem Other: There shortening and rotation of the left leg. Any range of motion of the left hip is quite painful. No skin lesions are noted. There is expected swelling around the hip. Objective Labs Result Diagrams: 10/24/18 21:25 10/24/18 21:25 Labs: Laboratory Results - last 24 hr 10/24/18 10/24/18 10/24/18 14:22 14:22 21:25 WBC 9.2 6.7 RBC 3.61 L 3.57 L Hgb 11.9 L 11.7 L Hct 35.1 L 34.7 L MCV 97.1 97.3 MCH 32.9 32.9 MCHC 33.9 33.8 RDW 12.8 12.5 Plt Count 153 138 L Neut % (Auto) 82.3 H 75.4 H Lymph % (Auto) 11.7 L 17.2 L [place] % (Auto) 4.4 6.0 Eos % (Auto) 1.2 L 1.0 L Baso % (Auto) 0.4 0.4 Neut # (Auto) 7600 H 5000 Lymph # (Auto) 1100 1200 [place] # (Auto) 400 400 Eos # (Auto) 100 100 Baso # (Auto) 0 0 Sodium 142 Potassium 4.2 Chloride 109 H Carbon Dioxide 25 BUN 20 H Creatinine 0.70 Estimated GFR > 60.0 BUN/Creatinine Ratio 28.6 H Glucose 103 Calcium 8.8 Troponin I 10/24/18 10/25/18 21:25 14:08 WBC RBC Hgb Hct MCV MCH MCHC RDW Plt Count Neut % (Auto) Lymph % (Auto) [place] % (Auto) Eos % (Auto) Baso % (Auto) Neut # (Auto) Lymph # (Auto) [place] # (Auto) Eos # (Auto) Baso # (Auto) Sodium 139 Potassium 4.0 Chloride 109 H Carbon Dioxide 26 BUN 19 H Creatinine 0.60 Estimated GFR > 60.0 BUN/Creatinine Ratio 31.7 H Glucose 148 H Calcium 8.8 Troponin I < 0.012 Assessment & Plan Assessment & Plan narrative: Displaced left intertrochanteric hip fracture. Patient's x-rays show a displaced intertrochanteric hip fracture on the left side. I discussed the nature of this condition with the patient as well as further treatment options. I have recommended repair of the fracture with an intramedullary hip screw. The nature of that procedure including the risks, benefits, alternatives, postoperative course and expected outcome were discussed and informed consent obtained. Operative site was confirmed and marked. Time Spent With Patient Time with patient: 15-24 minutes
--- NOTE | 2018-10-25 15:12 | PM.PREOP ---
Pre-operative Note Interval Note History & Physical reviewed/Exam performed by Physician: Yes Changes to H&P: No
--- NOTE | 2018-10-25 15:20 | PC.NURSE ---
Ortho: Doreen doctor told me if I broke my hip I would . Pt very anxious and fearful about upcoming surgery. Factual information given. Pt also spoke with Dr. Monaoc and Dr. Boateng about her concerns. Pt given time to verb her feelings. Pt having pain but was not willing to take morphine until prior leaving for surgery. Stated the toradol was effective for pain. At time of transfer pt reported she was having some chest pain/pressure. Dr. Monaco made aware, report called to Megan RN in PACU letting her know the patient was reporting c/p at the time she was being transfered. She has a significant cardiac hx and is also highly anxious. They will have anesth eval pt and he will decide about surgery. Pt is also highly anxious. Lt leg is shortened and externally rotated. Brisk cap refill and ppp, feet =/warm. Lt upper thigh is swollen. Cont w/poc.
[2018-10-25] MEDS: BUPIVACAINE 0.5% W/ EPI (PF) VIAL 30 ML INJ (15:58)
--- NOTE | 2018-10-25 16:39 | PM.OP.1 ---
Operative Date/Time/Diagnoses Date of procedure: 10/25/18 Time of procedure: 16:39 Pre-op diagnosis: Displaced left greater trochanteric hip fracture Post-op diagnosis: same Procedure & Clinicians Procedure: Repair of intertrochanteric hip fracture with intramedullary nail device Same procedure as scheduled: Yes Indications: The patient is a 72-year-old woman who fell yesterday and sustained an intertrochanteric hip fracture. She presents now for repair. I have recommended an intramedullary hip screw device. The nature of the procedure including the risks, benefits, alternatives, postoperative course and expected outcome was discussed and all questions answered. Operative site was confirmed and marked. Surgeon: Otto Boateng Click Yes if Unassisted: Yes Anesthesia Type: General and Local Operative Notes Findings: The patient had excellent bone quality. The femoral canal needed to be reamed to even get the smallest nail, 10 mm, placed. Closure Type: primary Specimen(s): none sent Prosthetic devices, grafts, tissues, transplants, or devices: Ludwig natural Nail intramedullary hip screw, short period Applied: implant(s) Estimated Blood Loss (mL): 50 Blood products transfused: none Procedure in detail: Patient was taken the operative suite and placed under general anesthesia. She was given 2 g of Ancef prior to surgery. She was then transferred onto the fracture table. The affected leg was placed in traction and the contralateral leg was flexed at the hip to allow C-arm visualization of the left hip. The fracture was reduced with traction and rotation. An essentially anatomic reduction was obtained. The hip was then prepped and draped usual sterile fashion. A guidewire was then placed in the tip of the trochanter down the femoral shaft. Once adequate position was checked on AP and lateral fluoroscopy the proximal femur was reamed to accept the nail. A 10 mm nail was selected and was initially placed into the canal. However, canal was quite tight in reaming was required. The canal was reamed to 11.5 mm. The nail could then be placed down by hand but with a nice tight fit. The nail was placed to the appropriate level and a guidewire placed through the nail into the femoral head. The position of the wire was slightly high on the AP but center center on the lateral. The patient's bone quality was excellent. The screw size was measured and then the femoral neck and head was reamed and the appropriate length screw placed. The screw had excellent purchase within the bone. Next the static distal locking screw was placed distally through the guide. A locking screw was then placed in the proximal end of the nail. Final AP and lateral fluoroscopy showed excellent position of the fracture and hardware. The wounds were copiously irrigated. They were closed with 2 O Vicryl sutures and elvin. The wound was anesthetized with 30 cc of 0.25% Marcaine with epinephrine. Xeroform and sterile gauze dressings were applied. The patient tolerated procedure well and was returned recovery room in good condition. Complications: none Condition: stable Disposition: PACU Plan for aftercare: The patient will be admitted back to Medicine. She may be weight-bearing as tolerated on the left lower extremity. Staple removal in 2 weeks.
--- NOTE | 2018-10-25 19:46 | PC.NURSE ---
Addendum entered by Kathryn Espana R.N. 10/25/18 19:53: 1945- Pt awake on talking on cell phone. provided half sand, jello, and soup. able to wiggle toes, ankle pumps, denies pain, CMS+, PP+. Original Note: 1715- Pt arrived back to room 219 from PACU, via bed. Alert and drowsy, left hip bulky drsg CDI, able to wiggle toes, PP+, denies pain at this time. Allowed to sleep, placed on 1.5L nc due to low SpO2 90% and sleeping, 99% on 1.5L nc. Replaced telemetry, mcgee patent and draining clear yellow urine, provided water,bed alarm on, call light in reach.
[2018-10-25] MEDS: ATORVASTATIN 20 MG TABLET 80 MG PO (22:36)
[2018-10-25] MEDS: ACETAMINOPHEN 325 MG TABLET 975 MG PO (22:37)
[2018-10-25] MEDS: SENNOSIDES 8.6 MG TABLET 17.2 MG PO (22:37)
[2018-10-25] MEDS: HEPARIN 5,000 UNIT/ML VIAL 5000 UNIT SUBCUT (22:38)
[2018-10-26] VITALS (11 sets, daily range): BP systolic 105–153; BP diastolic 40–73; PULSE 66–86; RESP 12–19; TEMP 36.4–36.9; O2SAT 91–97
[2018-10-26] MEDS: KETOROLAC 15 MG/ML VIAL IV ×4 (00:29→19:36)
--- NOTE | 2018-10-26 01:33 | PC.NURSE ---
Addendum entered by Carissa Guido R.N. 10/26/18 06:44: Notified INDUSTRIAL [employer] INST[employer]ER of low UOP in mcgee and bladder scanner show no retention. Per Melvin VALLE okay to change IVF to NS @100 ml/hr. Provider to place order. This freelance copywriter enc pt to drink more po fluids. Original Note: Assumed care of pt at 2330 on 10/25/18. Pt sleeping during hand-off report. Awakens to voice for assessment. Bulky drsg to L. hip c/d/i. No surgical drain present. Reports mild numbness to L. foot. Able to wiggle toes and perform ankle waves but unable to lift leg. PPP. Brisk cap refill. Feet equally warm. Mcgee draining to gravity. IVF infusing per orders. Pt rec sched toradol. Reports medication is effectively treating pain level. 1.5 L NC sats 94%. Enc to use I.S. 10x/hr while awake. Unable to reposition independently in bed. Advised pt staff can reposition q 2 hrs for pressure injury prevention. Pt states she doesn't want to reposition at this time but maybe later. Bed alarm on. Call light within reach.
[2018-10-26 06:01] LABS: Hematocrit 28.6 % (36-46); Mean Corpuscular HGB Conc 34.8 % (30-36); Mean Corpuscular Hemoglobin 33.4 PG (26-34); Mean Corpuscular Volume 96.1 fL (80-100); Platelet Count 107 X10^3/uL (150-400); Red Blood Cell Count 2.98 X10^6/uL (4.0-5.2); Red Cell Distribution Width 12.6 % (11.6-14.8); White Blood Cell Count 6.9 X10^3/uL (4.5-11.0)
[2018-10-26] MEDS: CEFAZOLIN 2 GM/100 ML FROZ.PIGGY IV (06:26)
--- NOTE | 2018-10-26 06:43 | PM.EVENT ---
Pt. reported to not be drinking or putting out much resulting in only 150 ml overnight. She had been on LR at 42 ml/hour, this has been replaced with NS at 100 ml/hour.
[2018-10-26] MEDS: SODIUM CHLORIDE 0.9% 1,000 ML 100 ML IV ×2 (06:59→17:36)
[2018-10-26] MEDS: OXYCODONE IR 5 MG TABLET PO (07:02)
[2018-10-26] MEDS: CARVEDILOL 3.125 MG TABLET PO ×2 (09:03→20:47)
[2018-10-26] MEDS: CITALOPRAM 10 MG TABLET PO (09:03)
[2018-10-26] MEDS: ASPIRIN EC 81 MG TABLET PO (09:03)
[2018-10-26] MEDS: ACETAMINOPHEN 325 MG TABLET 975 MG PO ×3 (09:03→20:56)
[2018-10-26] MEDS: DOCUSATE 100 MG CAPSULE PO ×2 (09:03→20:55)
[2018-10-26] MEDS: LOSARTAN 25 MG TABLET PO (09:04)
[2018-10-26] MEDS: ENOXAPARIN 40 MG/0.4 ML SYRINGE SUBCUT (09:04)
--- NOTE | 2018-10-26 09:16 | P.PN_ITS ---
Subjective Date Patient Seen: 10/26/18 Interval history: Mrs. harris is a 72-year-old female who suffered a ground level fall while walking around to [facility]. She fell on her left hip suffering a left intratrochanteric fracture. The patient had definitive surgical repair yesterday. Her surgery was uneventful. The patient did have some substernal chest pressure yesterday prior to her surgery. She reports this occurs every other day. She states this is different from her usual cardiac pain. This morning she does also report some chest pressure. She describes it as 1/10 intensity. She states that last for seconds and is not associated with shortness of breath or nausea. She does not feel this is similar to her prior cardiac history. The patient does have some pain from her surgical site. She has no shortness of breath. Exam Vital Signs (past 8 hours): - 10/26/18 04:39 10/26/18 08:20 10/26/18 08:30 Temperature 98.4 F Pulse Rate 66 Respiratory Rate 19 Blood Pressure 105/60 Pulse Oximetry 97 95 93 10/26/18 09:03 Temperature Pulse Rate Respiratory Rate Blood Pressure 109/65 Pulse Oximetry Fraction of Inspired Oxygen 21 Oxygen Delivery Method Room Air Oxygen Flow Rate 0 Narrative Exam Narrative: Pleasant female resting comfortably Lungs: Clear to auscultation Cardiac exam: Regular rate rhythm normal S1-S2 with a 2/6 systolic ejection murmur Abdomen: Soft nontender nondistended Extremities: Left hip with dressing in place, there is no saturation of the dressing she is tender over the left hip. She has no edema. Objective Labs Result Diagrams: 10/26/18 05:33 10/24/18 21:25 Labs: Laboratory Results - last 24 hr 10/25/18 10/26/18 14:08 05:33 WBC 6.9 RBC 2.98 L Hgb 10.0 L Hct 28.6 L MCV 96.1 MCH 33.4 MCHC 34.8 RDW 12.6 Plt Count 107 L Troponin I < 0.012 Assessment & Plan Assessment & Plan narrative: 1. 72-year-old female status post ground level fall who suffered a left intertrochanteric fracture. She is postop day 1. For definitive surgical repair. She is recovering well. At this time will continue physical therapy 0 occupational therapy, continue medications per surgery. 2. Coronary artery disease history of myocardial infarction history of stent placement. Patient does report some chest pressure it however review of EKG is unremarkable cardiac enzymes are negative. Will continue her usual cardiac medication and follow her symptomatically. Resume Brilinta. 3. Probable osteoporosis. Will start treatment as an outpatient. Quality VTE Deep Vein Thrombosis/Pulmonary Embolism Present on Admission: No
--- NOTE | 2018-10-26 11:23 | PM.PNPO.1 ---
Subjective Date Patient Seen: 10/26/18 Time Patient Seen: 11:23 Interval history: Hospital day 3, postop day 1 following left hip displaced intertrochanteric fracture with IM nail. She remained stable postoperatively. She is weight-bearing as tolerated. Had not had physical therapy yet. Vazquez catheter in place. Taking oxycodone for pain. Patient states that she lives alone in [place]. Does have some mild postoperative anemia. Exam Vital Signs (past 8 hours): - 10/26/18 04:39 10/26/18 08:20 10/26/18 08:30 Temperature 98.4 F Pulse Rate 66 Respiratory Rate 19 Blood Pressure 105/60 Pulse Oximetry 97 95 93 10/26/18 09:03 10/26/18 09:48 Temperature 97.5 F L Pulse Rate 77 Respiratory Rate 18 Blood Pressure 109/65 114/40 L Pulse Oximetry 91 Fraction of Inspired Oxygen 21 Oxygen Delivery Method Room Air Oxygen Flow Rate 0 Narrative Exam Narrative: Alert, oriented in no acute distress patient is ambulating from bed to chair with physical therapist at this time. Legs. Aquacel dressing to left hip is dry without drainage or inflammation. No calf pain or swelling. Pulses symmetrical. Patient able to do full extension of left leg from sitting position. Objective Labs Result Diagrams: 10/26/18 05:33 10/24/18 21:25 Labs: Laboratory Results - last 24 hr 10/25/18 10/26/18 14:08 05:33 WBC 6.9 RBC 2.98 L Hgb 10.0 L Hct 28.6 L MCV 96.1 MCH 33.4 MCHC 34.8 RDW 12.6 Plt Count 107 L Troponin I < 0.012 Assessment & Plan Post-op Postoperative Procedures Operation Date: 10/25/18 17:00 Actual Procedures Side Surgeon p ORIF Hip IM Nail Left Otto Boateng MD Plan: Patient will work with PT. Will have product planner talked to patient about options. Will start patient on vitamin-C and iron for anemia. She is being followed by hospitalist and will have discharge pending her progress. She will need postop visit orthopedic office 2 weeks postop. Quality VTE Deep Vein Thrombosis/Pulmonary Embolism Present on Admission: No
--- NOTE | 2018-10-26 11:26 | PT.IIE ---
Current Diagnoses Other osteoporosis with current pathological fracture, left femur, initial encounter for fracture (10/24/18) Surgery Performed Operation Date: 10/25/18 17:00 Actual Procedures p ORIF Hip IM Nail(Left) - Otto Boateng MD Medical History (Last Reviewed 10/25/18 @ 15:09 by Otto Boateng MD) CAD (coronary artery disease) (Acute) History of myocardial infarction (Acute) History of sciatica (Acute) Lumbar stenosis (Acute) Physical Therapy Inpatient Evaluation/Re-Eval M1 PT/OT-IP Prior Functional Status Start: 10/25/18 09:04 Freq: NEEDED Status: Active Protocol: Document 10/26/18 08:55 HH (Rec: 10/26/18 11:25 [id number]) Medical Review Prior Functional Status Medical History Reviewed Yes Diet/Fluid Consistency Regular Communication No deficits noted. Able to make needs known Mobility and Gait Pt was an independent ambulator at home and community without AD. She was very active who likes to hike and do yoga. But she states she had falls over the years but does not known why. She did have L hip pain prior to her sx. Activities of Daily Living and IADL's independent with ADLs and IADLs. Pt does not drive at this point. Social History Household Members none Living Arrangements Apartment/Condo Number of Floors (Floors) 3 or More Floors Number of Stairs To Enter/Railing? with elevator access Home Environment Standard Height Toilet Tub/Shower Doors Employment Status Retired Additional Social History Comment Pt lives alone in an apt with elevator access in [place]. She has one son who lives in [facility]. Pt does not have any DME at home and she expects to go to SNF in [facility] for short term rehab if needed. M2 PT-IP Current Condition Start: 10/25/18 09:04 Freq: NEEDED Status: Active Protocol: Document 10/26/18 08:55 HH (Rec: 10/26/18 11:25 [id number]) Physical Therapy Current Condition Current Condition Evaluation Date 10/26/18 Treatment Diagnosis L hip ORIF s/p L trochanteric fx from GLF, difficulty in walking Onset Date 10/25/18 Weight Bearing Status Weight Bearing Status Weight Bear as Tolerated M3 PT-IP Subjective Start: 10/25/18 09:04 Freq: NEEDED Status: Active Protocol: Document 10/26/18 08:55 (Rec: 10/26/18 11:25 [id number]) Subjective Physical Therapy Visit Type Type Initial Evaluation Visit Start Time 08:55 Visit Stop Time 09:35 Total Visit Minutes 40 Notes RN reports pt has been feeling nauseated and dizzy with positional changes. Check VS frequently. Number of CUTTER OPERATOR HELPER Visits 0 Physical Therapy Visit Comments Patient Comments I want to get up. Patient Goals To be independent again for daily activities. Therapy Pain Assessment Pain When Pain Assessed During Mobility Pain Present Pain Present Pain Reported Location Left Leg Intensity 4 Scale Used Numeric (1 - 10) Description Acute Pain Management Techniques Apply Cold Timing of Activity with Medications M4 PT-IP Mobility and Gait Start: 10/25/18 09:04 Freq: NEEDED Status: Active Protocol: Document 10/26/18 08:55 HH (Rec: 10/26/18 11:25 [id number]) PT-Bed Mobility Assessment Rolling Level of Assist Moderate Assistance 1 Person Assistance Supine to Sit Supine to Sit Moderate Assistance 1 Person Assistance Head of Bed Elevated Bedrails Scooting Scooting to Edge of Bed Minimal Assistance PT-Transfer Assessment Sit to and From Stand Sit to and from Stand Minimal Assistance 1 Person Assistance Use of Upper Extremities Equipment Transfer Assistive Device Gait Belt Front Wheeled Walker Orthotic/Prosthetic Devices or Brace: No Transfers Transfer Destination Bed Chair Transfer Technique Stand Step Pivot Transfer Ability Level of Assist Minimal Assistance 1 Person Assistance Use of Upper Extremities Comments Mobility Comments Pt was up in bed upon assessment. BP pre and post assessment = 100-110s/40-50s, HR 80s. Pt performed supine to long sit and pivot to EOB on L side with mod A to unweigh LLE and RUE for support. Pt's bed mobility is slow and cautious due to pain on L hip. She was able to stand up with min A and FWW. But pt did c/o nauseated and dizzy duing bed mob and transfers and required 1-2 mins breaks for recovery. VS remained stable. She then amb from bedside towards windows with step to pattern, then returned to bedside chair. Needed cues for step to pattern but overall appears safe and steady. Gait Assessment Gait Gait Assistance Required: Contact Guard Assist Distance (Feet) 15 Able to Maintain Weight Bearing Status Yes During Gait Assistive Devices Assistive Device Gait Belt Front Wheeled Walker Orthotic/Prosthetic Devices or Brace: No Gait Deviations General Gait Pattern Antalgic Decreased Stride Length Decreased Feet Clearance Step-to Gait Factors Limiting Gait Function Factors Limiting Gait Function Decreased Activity Tolerance Decreased Strength Limited Range of Motion Pain Comments Gait Comments see mobility comments Stair Climbing Assessment Comments Stair Climbing Comments unable to assess PT-Balance Assessment Sitting Balance and Reactions Static Sitting Balance Ability Normal Dynamic Sitting Balance Ability Normal Standing Balance and Reactions Static Standing Balance Ability Good Dynamic Standing Balance Ability Good Device Used FWW M5 PT-IP Objective Assessments Start: 10/25/18 09:04 Freq: NEEDED Status: Active Protocol: Document 10/26/18 08:55 (Rec: 10/26/18 11:25 [id number]) Orientation Orientation/Cognition Level of Alertness Alert Orientation Name Age Birthday Month Date Year Day of Week Place Situation Language Function Ability No Deficits Noted Safety Awareness Understands Safety Issues Memory Description No Deficits Noted Gross Range of Motion Upper Extremity ROM Assessment Within Functional Limits Lower Extremity ROM Assessment Left Impaired Strength Upper Extremity Strength Assessment Within Functional Limits Lower Extremity Strength Assessment Left Impaired Hip 3-/5 Knee 4/5 Ankle 5/5 Coordination Assessment Gross Coordination Gross Coordination WNL Sensation Assessment Sensation Gross Sensation WNL Muscle Tone Muscle Tone WNL Yes M6 PT-IP Treatment Start: 10/25/18 09:04 Freq: NEEDED Status: Active Protocol: Document 10/26/18 08:55 (Rec: 10/26/18 11:25 [id number]) Physical Therapy Treatment Exercises Exercises Gluteal Sets Quad Sets Education Education Provided Precautions Weight Bearing Status Post-Op Packet Safety M7 PT-IP Assessment and Plan Start: 10/25/18 09:04 Freq: NEEDED Status: Active Protocol: Document 10/26/18 08:55 (Rec: 10/26/18 11:25 [id number]) PT Summary Assessment and Plan Potential Rehabilitation Potential Excellent Status of Condition at Evaluation Stable Summary Impairments Pain ROM Strength Balance Bed Mobility Transfers Gait Activity Tolerance Assessment Summary Pt is a low complexity who received L ORIF for her L trochanteric fx s/p GLF. Pt appears very alert and oriented and good safety awareness. Pt currently requires mod A for bed mobility, min A for transfers and CGA for gait training with FWW. However, due to the fact that pt lives alone without any DME, along her current limited functional mobility, pt will be a good candidate to have short term rehab SNF to improve her mobility and strength prior to safely d/c to home. Goals Bed Mobility Goal Contact Guard Assistance Transfer Goal Contact Guard Assistance Front Wheeled Walker Gait Goal Contact Guard Assistance Front Wheel Walker Gait Distance 150 Days to Meet Goals 5 Frequency of Treatment Frequency Of Treatment Twice a Day Treatment Plan Physical Therapy Treatment Plan Bed Mobility Training Transfer Training Gait Training Therapeutic Exercise Balance Retraining Post Op Education Discharge Planning Hot or Cold Pack Neuromuscular Re-ed Other Recommendations and Next Treatment bed mob, transfer and gait Focus training as jong with FWW Recommendations To Nursing Amount of Assist Needed 1 Person Assist Discharge Recommendations PT Discharge Recommendations SNF Rehab Other Discharge Recommendations due to the fact that pt lives alone without any DME, along her current limited functional mobility, pt will be a good candidate to have short term rehab SNF to improve her mobility and strength prior to safely d/c to home. Equipment Needed for Home Before FWW, shower transfer bench, Discharge raised toilet seat
--- NOTE | 2018-10-26 11:27 | P.PN_ITS ---
Subjective Date Patient Seen: 10/26/18 Time Patient Seen: 11:23 Interval history: Hospital day 3, postop day 1 following left hip displaced intertrochanteric fracture with IM nail. She remained stable postoperatively. She is weight-bearing as tolerated. Had not had physical therapy yet. Vazquez catheter in place. Taking oxycodone for pain. Patient states that she lives alone in [place]. Does have some mild postoperative anemia. Exam Vital Signs (past 8 hours): - 10/26/18 04:39 10/26/18 08:20 10/26/18 08:30 Temperature 98.4 F Pulse Rate 66 Respiratory Rate 19 Blood Pressure 105/60 Pulse Oximetry 97 95 93 10/26/18 09:03 10/26/18 09:48 Temperature 97.5 F L Pulse Rate 77 Respiratory Rate 18 Blood Pressure 109/65 114/40 L Pulse Oximetry 91 Fraction of Inspired Oxygen 21 Oxygen Delivery Method Room Air Oxygen Flow Rate 0 Narrative Exam Narrative: Alert, oriented in no acute distress patient is ambulating from bed to chair with physical therapist at this time. Legs. Aquacel dressing to left hip is dry without drainage or inflammation. No calf pain or swelling. Pulses symmetrical. Patient able to do full extension of left leg from sitting position. Objective Labs Result Diagrams: 10/26/18 05:33 10/24/18 21:25 Labs: Laboratory Results - last 24 hr 10/25/18 10/26/18 14:08 05:33 WBC 6.9 RBC 2.98 L Hgb 10.0 L Hct 28.6 L MCV 96.1 MCH 33.4 MCHC 34.8 RDW 12.6 Plt Count 107 L Troponin I < 0.012 Assessment & Plan Post-op Postoperative Procedures Operation Date: 10/25/18 17:00 Actual Procedures Side Surgeon p ORIF Hip IM Nail Left Otto Boateng MD Plan: Patient will work with PT. Will have convention planner talked to patient about options. Will start patient on vitamin-C and iron for anemia. She is be ing followed by hospitalist and will have discharge pending her progress. She will need postop visit orthopedic office 2 weeks postop. Quality VTE Deep Vein Thrombosis/Pulmonary Embolism Present on Admission: No
[2018-10-26] MEDS: ASCORBIC ACID 500 MG TABLET PO ×2 (12:09→21:00)
[2018-10-26] MEDS: FERROUS GLUCONATE 324 MG TABLET PO ×2 (12:09→20:56)
--- NOTE | 2018-10-26 15:38 | CM.DPNOTE ---
DCP Cont: MANAN Medina, faxed SNF referral to [facility] in [place] P# [phone] F# [phone] per pt's request[address] [facility] back this afternoon from [facility] from [facility] , they can admit pt tomorrow and have secured a SNF auth from [facility]. Will attempt to update pt before leaving today. Transportation TBD. Hopefully pt has someone that can transport via pov. Following for coordination of this DCP tomorrow, Tuesday. Need to complete PASRR. FABIENNE Tobias
--- NOTE | 2018-10-26 16:40 | PT.IPTN ---
Current Diagnoses Other osteoporosis with current pathological fracture, left femur, initial encounter for fracture (10/24/18) Surgery Performed Operation Date: 10/25/18 17:00 Actual Procedures p ORIF Hip IM Nail(Left) - Otto Boateng MD Physical Therapy Treatment Note M2 PT-IP Current Condition Start: 10/25/18 09:04 Freq: NEEDED Status: Active Protocol: Document 10/26/18 08:55 HH (Rec: 10/26/18 11:25 HH [id number]) Physical Therapy Current Condition Current Condition Evaluation Date 10/26/18 Treatment Diagnosis L hip ORIF s/p L trochanteric fx from GLF, difficulty in walking Onset Date 10/25/18 Weight Bearing Status Weight Bearing Status Weight Bear as Tolerated M3 PT-IP Subjective Start: 10/25/18 09:04 Freq: NEEDED Status: Active Protocol: Document 10/26/18 15:50 CLB (Rec: 10/26/18 16:39 CLB [id number]) Subjective Physical Therapy Visit Type Type Treatment Note Visit Start Time 15:50 Visit Stop Time 16:15 Total Visit Minutes 25 Notes Pt agreeable to do therapy. Physical Therapy Visit Comments Patient Comments Pt agreeable to do therapy. Pt stated she wanted to get out of the chair because her back was hurting. Therapy Pain Assessment Pain When Pain Assessed During Mobility Pain Present Pain Present Pain Reported Location Left Leg Intensity 4 Scale Used Numeric (1 - 10) M4 PT-IP Mobility and Gait Start: 10/25/18 09:04 Freq: NEEDED Status: Active Protocol: Document 10/26/18 15:50 CLB (Rec: 10/26/18 16:39 CLB [id number]) PT-Bed Mobility Assessment Sit to Supine Sit to Supine Minimal Assistance PT-Transfer Assessment Sit to and From Stand Sit to and from Stand Contact Guard Assistance 1 Person Assistance Use of Upper Extremities Equipment Transfer Assistive Device Gait Belt Front Wheeled Walker Orthotic/Prosthetic Devices or Brace: No Transfers Transfer Destination Bed Chair Transfer Technique Stand Step Pivot Transfer Ability Level of Assist Contact Guard Assistance 1 Person Assistance Use of Upper Extremities Comments Mobility Comments Pt up in chair upon arrival. Pt able to stand CGA with proper hand placement. Gait Assessment Gait Gait Assistance Required: Contact Guard Assist Distance (Feet) 100 Able to Maintain Weight Bearing Status Yes During Gait Assistive Devices Assistive Device Gait Belt Front Wheeled Walker Orthotic/Prosthetic Devices or Brace: No Gait Deviations General Gait Pattern Antalgic Decreased Stride Length Decreased Feet Clearance Step-to Gait Factors Limiting Gait Function Factors Limiting Gait Function Decreased Activity Tolerance Decreased Strength Limited Range of Motion Pain Comments Gait Comments Pt able to increase ambulation to ~100ft with CGA. Pt c/o dizziness at end of gait and wanted to return to bed. M5 PT-IP Objective Assessments Start: 10/25/18 09:04 Freq: NEEDED Status: Active Protocol: Document 10/26/18 08:55 HH (Rec: 10/26/18 11:25 HH [id number]) Orientation Orientation/Cognition Level of Alertness Alert Orientation Name Age Birthday Month Date Year Day of Week Place Situation Language Function Ability No Deficits Noted Safety Awareness Understands Safety Issues Memory Description No Deficits Noted Gross Range of Motion Upper Extremity ROM Assessment Within Functional Limits Lower Extremity ROM Assessment Left Impaired Strength Upper Extremity Strength Assessment Within Functional Limits Lower Extremity Strength Assessment Left Impaired Hip 3-/5 Knee 4/5 Ankle 5/5 Coordination Assessment Gross Coordination Gross Coordination WNL Sensation Assessment Sensation Gross Sensation WNL Muscle Tone Muscle Tone WNL Yes M6 PT-IP Treatment Start: 10/25/18 09:04 Freq: NEEDED Status: Active Protocol: Document 10/26/18 15:50 CLB (Rec: 10/26/18 16:39 CLB [id number]) Physical Therapy Treatment Exercises Exercises Gluteal Sets Quad Sets M7 PT-IP Assessment and Plan Start: 10/25/18 09:04 Freq: NEEDED Status: Active Protocol: Document 10/26/18 15:50 CLB (Rec: 10/26/18 16:39 CLB [id number]) PT Summary Assessment and Plan Potential Rehabilitation Potential Excellent Status of Condition at Evaluation Stable Summary Impairments Pain ROM Strength Balance Bed Mobility Transfers Gait Activity Tolerance Assessment Summary Pt improved with all mobility and was able to increase gait distance. Pt continues to require assist getting into bed and bed mobility for comfort to relieve back pain. Goals Bed Mobility Goal Contact Guard Assistance Transfer Goal Contact Guard Assistance Front Wheeled Walker Gait Goal Contact Guard Assistance Front Wheel Walker Gait Distance 150 Days to Meet Goals 5 Frequency of Treatment Frequency Of Treatment Twice a Day Treatment Plan Physical Therapy Treatment Plan Bed Mobility Training Transfer Training Gait Training Therapeutic Exercise Balance Retraining Post Op Education Discharge Planning Hot or Cold Pack Neuromuscular Re-ed Other Recommendations and Next Treatment bed mob, transfer and gait Focus training as jong with FWW Recommendations To Nursing Amount of Assist Needed 1 Person Assist Discharge Recommendations PT Discharge Recommendations SNF Rehab Other Discharge Recommendations due to the fact that pt lives alone without any DME, along her current limited functional mobility, pt will be a good candidate to have short term rehab SNF to improve her mobility and strength prior to safely d/c to home. Equipment Needed for Home Before FWW, shower transfer bench, Discharge raised toilet seat
--- NOTE | 2018-10-26 16:44 | OT.IP.EVAL ---
Current Diagnoses Other osteoporosis with current pathological fracture, left femur, initial encounter for fracture (10/24/18) Surgery Performed Operation Date: 10/25/18 17:00 Actual Procedures p ORIF Hip IM Nail(Left) - Otto Boateng MD Past Medical History (Last Reviewed 10/25/18 @ 15:09 by Otto Boateng MD) CAD (coronary artery disease) (Acute) History of myocardial infarction (Acute) History of sciatica (Acute) Lumbar stenosis (Acute) Occupational Therapy Inpatient Evaluation/Re-Eval M1 PT/OT-IP Prior Functional Status Start: 10/25/18 08:45 Freq: NEEDED Status: Active Protocol: Document 10/26/18 16:14 CGR (Rec: 10/26/18 16:43 CGR [email or web address]) Medical Review Prior Functional Status Medical History Reviewed Yes Diet/Fluid Consistency Regular Communication No deficits noted. Able to make needs known Mobility and Gait Pt was an independent ambulator at home and community without AD. She was very active who likes to hike and do yoga. But she states she had falls over the years but does not known why. She did have L hip pain prior to her sx. Activities of Daily Living and IADL's independent with ADLs and IADLs. Pt does not drive at this point. Social History Household Members none Living Arrangements Apartment/Condo Number of Floors (Floors) One Floor Number of Stairs To Enter/Railing? with elevator access Home Environment Standard Height Toilet Tub/Shower Doors Employment Status Retired Additional Social History Comment Pt lives alone in an apt with elevator access in [place]. She has one son who lives in [facility]. Pt does not have any DME at home and she expects to go to SNF in [facility] for short term rehab if needed. M1 PT/OT-IP Prior Functional Status Start: 10/25/18 09:04 Freq: NEEDED Status: Active Protocol: Document 10/26/18 08:55 HH (Rec: 10/26/18 11:25 HH [id number]) Medical Review Prior Functional Status Medical History Reviewed Yes Diet/Fluid Consistency Regular Communication No deficits noted. Able to make needs known Mobility and Gait Pt was an independent ambulator at home and community without AD. She was very active who likes to hike and do yoga. But she states she had falls over the years but does not known why. She did have L hip pain prior to her sx. Activities of Daily Living and IADL's independent with ADLs and IADLs. Pt does not drive at this point. Social History Household Members none Living Arrangements Apartment/Condo Number of Floors (Floors) 3 or More Floors Number of Stairs To Enter/Railing? with elevator access Home Environment Standard Height Toilet Tub/Shower Doors Employment Status Retired Additional Social History Comment Pt lives alone in an apt with elevator access in [place]. She has one son who lives in [facility]. Pt does not have any DME at home and she expects to go to SNF in [facility] for short term rehab if needed. M2 OT-IP Current Condition Start: 10/25/18 08:45 Freq: Status: Active Protocol: Document 10/26/18 16:14 CGR (Rec: 10/26/18 16:43 CGR [email or web address]) Occupational Therapy Current Condition Current Condition Evaluation Date 10/26/18 Treatment Diagnosis L hip fx s/p pinning. Diagnosis Onset Date 10/24/18 Weight Bearing Status Weight Bearing Status Weight Bear as Tolerated M3 OT- IP Subjective and Pain Start: 10/25/18 08:45 Freq: Status: Active Protocol: Document 10/26/18 16:14 CGR (Rec: 10/26/18 16:43 CGR [email or web address]) OT- Subjective Occupational Therapy Visit Type Type Initial Evaluation Visit Start Time 14:45 Visit Stop Time 15:10 Total Visit Minutes 25 Occupational Therapy Visit Comments Patient Comments I fell at the yarsanism outing.. .I am pretty sure I ruined their trip. OT Pain Assessment Pain When Pain Assessed During Mobility Pain Present Pain Present Pain Reported Location Left Leg Intensity 1 Scale Used Numeric (1 - 10) M4 OT- IP ADL's Start: 10/25/18 08:45 Freq: Status: Active Protocol: Document 10/26/18 16:14 CGR (Rec: 10/26/18 16:43 CGR [email or web address]) OT [id number] Comments OT Self-Feeding Comments Not meal time OT ADL-Grooming General Evaluation Grooming Ability Standby Assistance Comments OT Grooming Comments standing at sink for washing face and brushing teeth. OT ADL-Oral Care General Eval Oral Care Ability Standby Assistance Areas of Assistance Brushing Teeth Retrieving/Set-Up of Items Comments Oral Care Comments Standing at sink OT ADL-Dressing General Eval Lower Body Dressing Ability Total Assistance Areas Needing Assistance Socks OT ADL-Toileting Comments OT Toileting Comments Pt with mcgee at this time. OT ADL-Bathing Comments OT Bathing Comments Not performed on this date M5 OT- IP IADL's Start: 10/25/18 08:45 Freq: Status: Active Protocol: Document 10/26/18 16:14 CGR (Rec: 10/26/18 16:43 CGR [email or web address]) OT-Instrumental Activities of Daily Living Deficits IADL Deficits Identified Deficits Home Safety Awareness Awareness of Need for Assistance at Home Good Awareness Ability to Problem Solve Emergency Able to Problem Solve Situations Medication Management Medication Management No Deficits Identified Money Management Money Management No Deficits Identified Meal Preparation Meal Preparation No Deficits Identified Showroom Sales Assistant Showroom Sales Assistant Comments Pt will need assist upon discharge, son to assist? Driving Driving Comments Pt does not drive at baseline. M6 OT- IP Functional Cognition Start: 10/25/18 08:45 Freq: Status: Active Protocol: Document 10/26/18 16:14 CGR (Rec: 10/26/18 16:43 CGR [email or web address]) Cognitive Factors Limiting Selfcare Function Cognitive Ability Level of Alertness Alert Patient Orientation Name Age Birthday Month Date Year Day of Week Place Situation Attention Span Ability Capable of Focused Attention Capable of Sustained Attention Ability to Follow Commands Able to Follow Multi-Step Commands Memory Description No Deficits Noted Safety Awareness No Deficits Noted Problem Solving Ability No deficits Noted Executive Function Ability No Deficits Noted Abstract Thinking Ability No Deficits Noted OT- Vision and Hearing OT- Hearing Assessment OT- Hearing Assessment WFL OT- Vision Assessment Visual Acuity WFL Glasses All The Time Visual Attentiveness WFL Occular Pursuits WFL Visual Convergence WFL Visual Jha WFL M7 OT- IP Mobility and Balance Start: 10/25/18 08:45 Freq: Status: Active Protocol: Document 10/26/18 16:14 CGR (Rec: 10/26/18 16:43 CGR [email or web address]) OT- Bed Mobility Assessment Supine to Sit Supine to Sit Assist Minimal Assistance Head of Bed Elevated OT-Transfer Assessment Sit to and From Stand Sit to and from Stand Standby Assistance Transfers Transfer Ability Standby Assistance Technique Transfer Destination Bed Chair Transfer Technique Stand Step Pivot Devices Transfer Assistive Devices Gait Belt Front Wheeled Walker Comments Mobility Comments Up to sink for ADLs. Able to stand for all ADLs. OT- Balance Assessment Sitting Balance and Reactions Static Sitting Balance Ability Normal Dynamic Sitting Balance Ability Good M8 OT- IP Objective Assessments Start: 10/25/18 08:45 Freq: Status: Active Protocol: Document 10/26/18 16:14 CGR (Rec: 10/26/18 16:43 CGR [email or web address]) OT Gross Range of Motion Upper Extremity Range of Motion Assessment Within Functional Limits OT Strength Upper Extremity Strength Assessment Within Functional Limits Comments Strength Comments 4+/5 throughout OT- Coordination Assessment Upper Extremity Finger to Nose Test Within Functional Limits Finger Tapping Test Within Functional Limits OT-Muscle Tone Assessment Muscle Tone WNL Yes OT Sensation Assessment Edema Edema Absent M9 OT- IP Assessment and Plan Start: 10/25/18 08:45 Freq: Status: Active Protocol: Document 10/26/18 16:14 CGR (Rec: 10/26/18 16:43 CGR [email or web address]) OT Summary Assessment and Plan Potential Rehabilitation Potential Excellent Analytic Complexity at Evaluation Low Summary OT Impairments Pain Balance Functional Mobility Grooming Dressing Toileting Bathing Toilet Transfers Shower Transfers Progress Towards Goals Progressing Toward Goals Assessment Summary Pt is s/p fall with L hip fx and underwent IM nailing. Pt is very independent at baseline and will likely progress quickly. Pt will benefit from continued OT services. Recommend d/c to SNF vs home depending on progress and home support. Goals Grooming Goal Independent Dressing Goal Independent Long Handled Shoe Horn Lathe Setup Operator Sock Aid Toileting Goal Independent Bathing Goal Independent Toilet Transfer Goal Independent Shower Transfer Goal Independent Frequency of Treatment Frequency Of Treatment Once a Day Treatment Plan OT Treatment Plan ADL Training Functional Mobility Patient/Family Education Discharge Planning Other Treatment Recommendations and Next Shower and LB dressing Treatment Focus Discharge Recommendations OT Discharge Recommendations Home with Assistance SNF Rehab Other Discharge Recommendations Home with assist vs SNF Home Equipment Needs TBD based on progress. Lona to need a tub transfer bench and hip kit.
[2018-10-26] MEDS: HEPARIN 5,000 UNIT/ML VIAL 5000 UNIT SUBCUT (20:55)
[2018-10-26] MEDS: ATORVASTATIN 20 MG TABLET 80 MG PO (20:56)
[2018-10-26] MEDS: SENNOSIDES 8.6 MG TABLET 17.2 MG PO (20:56)
--- NOTE | 2018-10-27 00:04 | PC.NURSE ---
shift summary- A/O x4, 93%RA, LS clear, denies SOB. tele NSR x2, denies chest pain and dizziness. Left hip bulky drsg CDI with sm old shadow drainage. Vazquez patent and draining clear yellow urine. BT+, denies nausea, reg diet. R hand NS @ 100. rates pain 1-2/10, declines any pain meds except scheduled tylenol and torodol. up to chair x 3 this shift. 2100 Vazquez out, no issues, provided peripad for security. 2200-1PA BRP to void clear yellow urine. C/O stomach ache, not nausea, emesis 100ml x2, refused zofran each time offered, (3 times). back to bed and toilet 4 times in 45min. No BM, and no further emesis. calf SCD's on,bed alarm on, and call light in reach.
[2018-10-27] MEDS: KETOROLAC 15 MG/ML VIAL IV ×2 (00:11→06:30)
[2018-10-27 03:20] VITALS: BP 129/72; PULSE 102; RESP 17; TEMP 37.3; O2SAT 93
[2018-10-27] MEDS: OXYCODONE IR 5 MG TABLET PO ×2 (04:01→12:23)
[2018-10-27] MEDS: SODIUM CHLORIDE 0.9% 1,000 ML 75 ML IV (04:02)
--- NOTE | 2018-10-27 06:54 | PC.NURSE ---
Denies nausea all shift & no C/O abdominal pain. Voiding QS after mcgee was DC'd. Medicated x1 with Percolone 5 mg. & routine Toradol 15 mg. X 2. Will cont. POC & monitor.
[2018-10-27 07:00] VITALS: BP 114/58; PULSE 87; RESP 14; TEMP 38; O2SAT 95
[2018-10-27] MEDS: ENOXAPARIN 40 MG/0.4 ML SYRINGE SUBCUT (08:38)
[2018-10-27] MEDS: ACETAMINOPHEN 325 MG TABLET 975 MG PO (08:38)
[2018-10-27] MEDS: FERROUS GLUCONATE 324 MG TABLET PO (08:39)
[2018-10-27] MEDS: DOCUSATE 100 MG CAPSULE PO (08:39)
[2018-10-27 08:40] VITALS: BP 114/58; PULSE 87
[2018-10-27] MEDS: CARVEDILOL 3.125 MG TABLET PO (08:40)
[2018-10-27] MEDS: CITALOPRAM 10 MG TABLET PO (08:40)
[2018-10-27] MEDS: LOSARTAN 25 MG TABLET PO (08:40)
[2018-10-27] MEDS: ASPIRIN EC 81 MG TABLET PO (08:40)
[2018-10-27] MEDS: ASCORBIC ACID 500 MG TABLET PO (08:40)
[2018-10-27] MEDS: HEPARIN 5,000 UNIT/ML VIAL 5000 UNIT SUBCUT (08:41)
--- NOTE | 2018-10-27 09:20 | P.PN_ITS ---
Subjective Date Patient Seen: 10/27/18 Interval history: The patient is a 72-year-old female who suffered a ground level fall while at [employer]. She is recovering nicely. She does report having some nausea and diarrhea last evening. That has since resolved. The patient thinks she may have fell on her chest chest discomfort as well per that is improving. She denies any shortness of breath. She does have some hip pain from her surgical site worse with activity. Exam Vital Signs (past 8 hours): - 10/27/18 03:20 10/27/18 07:00 10/27/18 08:40 Temperature 99.2 F 100.4 F H Pulse Rate 102 H 87 87 Respiratory Rate 17 14 Blood Pressure 129/72 114/58 L 114/58 L Pulse Oximetry 93 95 Fraction of Inspired Oxygen 21 Oxygen Delivery Method Room Air Oxygen Flow Rate 0 Narrative Exam Narrative: Pleasant female lying in bed Lungs: Clear to auscultate Cardiac exam: Regular rate and rhythm normal S1 S Abdomen: Soft nontender nondistended Extremities: Left dressing is dry no or bleeding noted. Minimal edema of the left leg noted. Objective Labs Result Diagrams: 10/26/18 05:33 10/24/18 21:25 Assessment & Plan Assessment & Plan narrative: 1. 72-year-old female status post ground level fall who suffered a left intertrochanteric fracture. She is postop day 2. For definitive surgical repair. She is recovering well. At this time will continue physical therapy 0 occupational therapy, continue medications per surgery. 2. Coronary artery disease history of myocardial infarction history of stent placement. Patient does report some chest pressure it however review of EKG is unremarkable cardiac enzymes are negative. Will continue her usual cardiac medication and follow her symptomatically. Resume Brilinta. 3. Probable osteoporosis. Will start treatment as an outpatient. Quality VTE Deep Vein Thrombosis/Pulmonary Embolism Present on Admission: No
--- NOTE | 2018-10-27 09:25 | PT.IPTN ---
Current Diagnoses Other osteoporosis with current pathological fracture, left femur, initial encounter for fracture (10/24/18) Surgery Performed Operation Date: 10/25/18 17:00 Actual Procedures p ORIF Hip IM Nail(Left) - Otto Boateng MD Physical Therapy Treatment Note M2 PT-IP Current Condition Start: 10/25/18 09:04 Freq: NEEDED Status: Active Protocol: Document 10/26/18 08:55 HH (Rec: 10/26/18 11:25 HH [id number]) Physical Therapy Current Condition Current Condition Evaluation Date 10/26/18 Treatment Diagnosis L hip ORIF s/p L trochanteric fx from GLF, difficulty in walking Onset Date 10/25/18 Weight Bearing Status Weight Bearing Status Weight Bear as Tolerated M3 PT-IP Subjective Start: 10/25/18 09:04 Freq: NEEDED Status: Active Protocol: Document 10/27/18 09:17 LJ (Rec: 10/27/18 09:25 LJ [id number]) Subjective Physical Therapy Visit Type Type Treatment Note Visit Start Time 09:00 Visit Stop Time 09:18 Total Visit Minutes 18 Notes Pt agreeable to do therapy. Therapy Pain Assessment Pain When Pain Assessed During Mobility Pain Present Pain Present Pain Reported M4 PT-IP Mobility and Gait Start: 10/25/18 09:04 Freq: NEEDED Status: Active Protocol: Document 10/27/18 09:17 LJ (Rec: 10/27/18 09:25 LJ [id number]) PT-Transfer Assessment Sit to and From Stand Sit to and from Stand Standby Assistance Use of Upper Extremities Equipment Transfer Assistive Device Gait Belt Front Wheeled Walker Orthotic/Prosthetic Devices or Brace: No Transfers Transfer Destination Chair Transfer Technique Stand Step Pivot Transfer Ability Level of Assist Standby Assistance Use of Upper Extremities Comments Mobility Comments Pt up in chair upon arrival. Pt able to stand SBA with proper hand placement. Began standing prior to having FWW in front of her. Gait Assessment Gait Gait Assistance Required: Standby Assistance Distance (Feet) 150 Able to Maintain Weight Bearing Status Yes During Gait Assistive Devices Assistive Device Gait Belt Front Wheeled Walker Orthotic/Prosthetic Devices or Brace: No Gait Deviations General Gait Pattern Antalgic Decreased Stride Length Decreased Feet Clearance Step-to Gait Factors Limiting Gait Function Factors Limiting Gait Function Decreased Activity Tolerance Decreased Strength Limited Range of Motion Pain Comments Gait Comments Pt increased ambulation to 150 ' with one rest break d/t dizziness. Pt is safety aware and stable with no LOB M5 PT-IP Objective Assessments Start: 10/25/18 09:04 Freq: NEEDED Status: Active Protocol: Document 10/26/18 08:55 HH (Rec: 10/26/18 11:25 HH [id number]) Orientation Orientation/Cognition Level of Alertness Alert Orientation Name Age Birthday Month Date Year Day of Week Place Situation Language Function Ability No Deficits Noted Safety Awareness Understands Safety Issues Memory Description No Deficits Noted Gross Range of Motion Upper Extremity ROM Assessment Within Functional Limits Lower Extremity ROM Assessment Left Impaired Strength Upper Extremity Strength Assessment Within Functional Limits Lower Extremity Strength Assessment Left Impaired Hip 3-/5 Knee 4/5 Ankle 5/5 Coordination Assessment Gross Coordination Gross Coordination WNL Sensation Assessment Sensation Gross Sensation WNL Muscle Tone Muscle Tone WNL Yes M6 PT-IP Treatment Start: 10/25/18 09:04 Freq: NEEDED Status: Active Protocol: Document 10/27/18 09:17 LJ (Rec: 10/27/18 09:25 LJ [id number]) Physical Therapy Treatment Exercises Exercises Ankle Pumps Gluteal Sets Quad Sets Education Education Provided Precautions Weight Bearing Status Post-Op Packet Safety M7 PT-IP Assessment and Plan Start: 10/25/18 09:04 Freq: NEEDED Status: Active Protocol: Document 10/27/18 09:17 LJ (Rec: 10/27/18 09:25 LJ [id number]) PT Summary Assessment and Plan Potential Rehabilitation Potential Excellent Status of Condition at Evaluation Stable Summary Impairments Pain ROM Strength Balance Bed Mobility Transfers Gait Activity Tolerance Assessment Summary Pt improving with mobility and gait distance. Appears stable but still requiring rest break for dizziness. Goals Bed Mobility Goal Contact Guard Assistance Transfer Goal Contact Guard Assistance Front Wheeled Walker Gait Goal Contact Guard Assistance Front Wheel Walker Gait Distance 150 Days to Meet Goals 5 Frequency of Treatment Frequency Of Treatment Twice a Day Treatment Plan Physical Therapy Treatment Plan Bed Mobility Training Transfer Training Gait Training Therapeutic Exercise Balance Retraining Post Op Education Discharge Planning Hot or Cold Pack Neuromuscular Re-ed Other Recommendations and Next Treatment bed mob, transfer and gait Focus training as jong with FWW Recommendations To Nursing Amount of Assist Needed 1 Person Assist Discharge Recommendations PT Discharge Recommendations SNF Rehab Other Discharge Recommendations due to the fact that pt lives alone without any DME, along her current limited functional mobility, pt will be a good candidate to have short term rehab SNF to improve her mobility and strength prior to safely d/c to home. Equipment Needed for Home Before FWW, shower transfer bench, Discharge raised toilet seat
--- NOTE | 2018-10-27 09:48 | PM.DS.1 ---
History of Present Illness Chief complaint: GLF, L hip injury Narrative: Patient is a 72-year-old female with a history of coronary disease status post myocardial infarction 3 years ago and 1 stent who was in her usual state of health until today. Patient was at [facility] and slipped and fell. Patient reports she fell she fell on her hip. She knew immediately something was wrong. She had significant pain. Patient was brought into the emergency department and found to have A left intertrochanteric fracture. Patient reports some pain in the left hip. She denies any chest pain, shortness of breath, nausea or vomiting. Patient denies any fever or chills. She has had no dysuria hematuria or pyuria she denies any nausea vomiting diarrhea or constipation. Patient reports she is healthy. Discharge Providers Date of admission: 10/24/18 17:18 Discharge Date: 10/27/18 Consults: 10/24/18 18:29 Consult to Occupational Therapy Evaluate & Treat Comment: Physician Instructions: Evaluate and treat Consult to Physical Therapy Evaluate & Treat Comment: Physician Instructions: Evaluate and Treat 10/25/18 16:54 Consult to Physician Routine Comment: Consulting Provider: Otto Boateng Reason for consultation: see notes 10/25/18 18:04 Consult to Discharge Planning Routine Comment: Consult to Physical Therapy Evaluate & Treat Comment: Physician Instructions: Evaluate and Treat Consult to Respiratory Therapy Evaluate & Treat Comment: Physician Instructions: Evaluate and treat 10/26/18 09:52 Consult to Occupational Therapy Evaluate & Treat Comment: Physician Instructions: Evaluate and treat Discharge provider: Yelena Monaco MD Summary Discharge Diagnosis: Left intertrochanteric hip fracture status post repair with an intramedullary nail device Status post ground level fall Osteoporosis Coronary artery disease history of myocardial infarction, status post stent placement Anemia, postoperative Hospital Course: Patient is a 72 delightful female who was visiting from [place] [facility]. She slipped on the rocks and fell on her left hip. She had immediate pain and was brought into the emergency department for evaluation. Patient was found to have a left intertrochanteric fracture. Patient was taken to the operating room for definitive repair with an intramedullary nail. She tolerated the procedure without difficulty. She had no complications. Patient recovered well postoperatively. She was seen by PT and able to ambulate without difficulty. She was deemed appropriate for transfer to the halfway facility and arrangements were made for her to be transferred to [facility]. At this time the patient's pain is well controlled. She has no specific complaints. Deemed appropriate for discharge. Status at Discharge Cognitive/behavioral status at discharge: oriented Functional status at discharge: uses cane/walker Overall status at discharge: patient is not back to baseline Time Spent with Patient Less than 30 minutes Exam Vital Signs (past 8 hours): - 10/27/18 03:20 10/27/18 07:00 10/27/18 08:40 Temperature 99.2 F 100.4 F H Pulse Rate 102 H 87 87 Respiratory Rate 17 14 Blood Pressure 129/72 114/58 L 114/58 L Pulse Oximetry 93 95 Fraction of Inspired Oxygen 21 Oxygen Delivery Method Room Air Oxygen Flow Rate 0 Narrative Exam Narrative: Pleasant female in no acute distress Lungs: Clear to auscultation Cardiac exam regular rate and rhythm normal S1-S2 Abdomen: Soft nontender nondistended Extremities left hip dressing is dry left leg with minimal edema Objective Labs Result Diagrams: 10/26/18 05:33 10/24/18 21:25 Discharge Plan Discharge Plan Discharge Problem: Closed fracture of left hip Patient Disposition: SNF Other facility: [facility] Transportation: Private vehicle I certify the postop hospital halfway care is medically necessary on a continuing basis for any conditions for which he/ she received care during this hospitalization.: Yes The receiving facility has agreed to accept transfer and provide medical treatment.: Yes Discharge Med Rec/Prescriptions Prescriptions: New sennosides [senna] 8.6 mg Tablet 17.2 mg PO BEDTIME 15 Days RF: 0 acetaminophen 325 mg Tablet 975 mg PO TID 7 Days Qty: 63 RF: 0 bisacodyl 10 mg Suppository 10 mg RI DAILY PRN (Reason: Constipation) 15 Days RF: 0 docusate sodium [DOK] 100 mg Capsule 100 mg PO BID 15 Days Qty: 30 RF: 0 oxycodone 5 mg Tablet 5 mg PO Q3HR PRN (Reason: Pain, Moderate (4-6)) 7 Days RF: 0 enoxaparin [Lovenox] 40 mg/0.4 mL Syringe 40 mg subcut DAILY 10 Days RF: 0 ferrous gluconate 324 mg (38 mg iron) Tablet 324 mg PO BID 30 Days Qty: 60 RF: 0 Continued atorvastatin 80 mg Tablet 80 mg PO DAILY RF: 0 citalopram 10 mg Tablet 10 mg PO DAILY RF: 0 aspirin 81 mg Tablet,Delayed Release (Dr/Ec) 81 mg PO DAILY RF: 0 carvedilol 3.125 mg Tablet 3.125 mg PO BID RF: 0 losartan 25 mg Tablet 25 mg PO DAILY RF: 0 ascorbic acid (vitamin C) 100 mg Tablet 100 mg PO DAILY RF: 0 Brilinta 90 mg Tablet 90 mg PO BID RF: 0 Vitamin D3 1 cap PO DAILY RF: 0 Discharge Health Status Brief summary of current health status: Patient is status post left hip intramedullary nail placement for intertrochanteric fracture. She has improved and is deemed appropriate for discharge to halfway facility. Provider Discharge Instructions Diet: Low-sodium and Low-cholesterol Liquid consistency: Normal/Thin Food texture: Regular Skin/Wound/Dressing Care Report to your healthcare provider any signs of infection, such as:: unusual redness Special Rehabilitation Services Reason for rehabilitation: Post-operative therapy Rehab type: Physical therapy and Occupational therapy Visit Report/Discharge Packet Instructions: Hip Fracture Discharge Data Attending Provider: Yelena Monaco Admjustine Date/Time: 10/24/18 17:18 Quality VTE Deep Vein Thrombosis/Pulmonary Embolism Present on Admission: No
[2018-10-27] MEDS: Ticagrelor [Brilinta] 90 MG 90 EACH PO (10:37)
[2018-10-27] MEDS: ONDANSETRON 4 MG ODT 8 MG PO (12:15)
--- NOTE | 2018-10-27 14:52 | PC.NURSE ---
Pt discharged via private car to [facility] in [place], [place]. Pt denied need for pain medication at discharge. Coversite to left hip CDI. CMS intact. Discharge instuctions reviewed with pt. Completed discharge packet for SNF given to pt, pt stated understanding that packet is to be handed to SNF at admit. Report called to [facility]. Report included need for pt to have follow up with Dr. Boateng at the [facility] in two weeks, and that pt had been implusive while inpt and fall risk teaching needs to be reinforced.
--- NOTE | 2018-10-27 15:57 | CM.DPNOTE ---
Addendum entered by FABIENNE Tobias 10/27/18 16:12: Re: Transportation benefit, had to place an additional call to [facility] [place] (contracted through [facility]) P# [phone], they are the ones that reviewed pt's benefit. Original Note: DC Note: DC order in place from Dr Monaco to [facility] in [place]. Updated pt; she remains agreeable but explained she did not arrange a friend to pick her up and asked if her [facility] coverage might cover a cabulance ride? Pt said she has a transportation (cabulance) benefit but she typically has to arrange this 3 days in advance. Placed call to Provider line, customer service number on back of pt's card P# [phone], spoke w/ a rep who reviewed pt's coverage and explained pt does have a transportation benefit to and from medical appts but she can only be authorized for 50 miles and this trip would be 63. Then placed call to [employer] to ask for a quote for private payment to [place] and it would be approx $300-$350. Explained to pt that insurance would not cover and cost could be upwards of $350. Pt said she could not afford that and so arranged a friend to pick her up this afternoon approx 1400. Updated Sera at [facility] w/all information above and faxed completed PASRR, completed and signed med list/Rx and DC Summary to [facility] F#[phone]. Later heard from Sera w/confirmation she had received all she needed. P: DC to [facility] in [place] via pov today. FABIENNE Tobias
== END 2018-10-27 14:50 | DRG 481 ==
LOC: ED 15:56 → AC 17:18
PROVIDERS: Anesthesiology; Orthopaedic Surgery; Admitting Provider Internal Medicine; Emergency Provider Emergency Medicine; Visit Provider Internal Medicine
PROC: 0QS706Z Reposition Left Upper Femur with Intramedullary Internal Fixation Device, Open Approach (ICD-10-PCS; CPT 27245; principal; 2018-10-25 17:00)
DX: M80.852A Other osteoporosis with current pathological fracture, left femur, initial encounter for fracture (principal); D62 Acute posthemorrhagic anemia; I25.10 Atherosclerotic heart disease of native coronary artery without angina pectoris; F32.9 Major depressive disorder, single episode, unspecified; W18.30XA Fall on same level, unspecified, initial encounter; Y92.830 Public park as the place of occurrence of the external cause
CPT/HCPCS: 36415; 73502; 76000; 80048; 81003; 84484; 85025; 85027; 93005; 94760; 94762; 96374; 96376; 97110; 97116; 97161; 97165; 97530; 97535; 99283; 99284; J0690; J1170; J1644; J1650; J1885; J2270